=== PATIENT | female | born 1940 | race Caucasian/White ===

== ENCOUNTER 2022-03-19 19:31 | Emergency (ER) | payer MEDICARE, SELFPAY ==
[2022-03-19 19:49] VITALS: BP 177/72; PULSE 69; O2SAT 99; BMI 23.7
[2022-03-19 20:02] VITALS: O2SAT 97
[2022-03-19 20:12] VITALS: PULSE 70; O2SAT 95
[2022-03-19 20:15] VITALS: PULSE 68; O2SAT 98
[2022-03-19 20:16] LABS: Troponin, Point-of-Care* 0.01 ng/ml (0.01-0.04)
--- NOTE | 2022-03-19 20:25 | ED_ITS ---
HPI - Chest Pain General Chief Complaint: Chest Pain Stated Complaint: Excessive Shortness of Breath - Pain in Chest Time Seen by Provider: 03/19/22 20:04 History of Present Illness HPI narrative: 81-year-old woman presenting to the emergency department with complaint of burning low chest pain. Is going on about 5 days of illness. Was seen 2 days ago in clinic due to severe exercise intolerance and audible chest congestion/wheeze-apparently does have an underlying reactive airway diagnosis, not COPD and uses nebulizations- reportedly diagnosed with pneumonia and heart failure exacerbation and was doubled on diuretics and has been diuresing. Nebulizations have been helpful when wheezy. Woke today feeling markedly improved. Has a history of left foot and leg spasms and this started happening again this evening seemed to proceed upper leg and then started breathing heavily along with something ?not right? in her chest describing his burning sensation. Apparently this is new. Does have a long history of esophageal inflammation with a history of spasms which usually are much more intense pain alleviated with nitro and sounds like has a history of stricture or dysmotility of some sort and has had dilatation and scheduled for another soon. Has extensive cardiac history as well with open heart surgeries. Related Data Home Medications Medication Instructions Recorded Confirmed albuterol sulfate 2.5 mg/3 mL mg 03/19/22 (0.083 %) solution for nebulization ciprofloxacin HCl 500 mg tablet mg 03/19/22 fluoxetine 10 mg capsule mg 03/19/22 fluoxetine 20 mg capsule mg 03/19/22 isosorbide mononitrate 30 mg mg PO 03/19/22 tablet,extended release 24 hr levalbuterol HCl 0.31 mg/3 mL mg inhalation 03/19/22 solution for nebulization losartan 25 mg tablet mg 03/19/22 magnesium oxide mg 03/19/22 metoprolol succinate 25 mg mg PO 03/19/22 tablet,extended release 24 hr nitroglycerin 0.4 mg sublingual mg 03/19/22 tablet Allergies Allergy/AdvReac Type Severity Reaction Status Date / Time buspirone [From BuSpar] Allergy Unknown Verified 03/19/22 19:52 Exam Narrative Exam Narrative: Is very pleasant. Calm but appears mildly anxious demonstrated in part by an intermittent breathlessness. Nerves 2 through 12 are intact. Lungs actually are clear. Cardiovascular slow to maybe bradycardic in a regular rate and rhythm. Appears to have mild JVD. Abdomen is soft and generally sensitive tummy; sounds like this is not a new phenomenon. Normoactive bowel sounds. No extremity edema. Oxygen sats of 100% skin is warm and dry without evidence of injury or inflammatory changes otherwise. Oropharynx is dry Const Vital Signs, click to edit/add: Vital Signs - 24 hr 03/19/22 19:49 03/19/22 20:02 03/19/22 20:12 Pulse Rate 70 Pulse Rate [Left Pulse Oximeter] 69 Blood Pressure [Right Upper Arm] 177/72 H Pulse Oximetry 99 97 95 Oxygen Delivery Method Room Air 03/19/22 20:15 03/19/22 20:30 03/19/22 20:45 Pulse Rate 68 64 67 Pulse Rate [Left Pulse Oximeter] Blood Pressure [Right Upper Arm] Pulse Oximetry 98 98 97 Oxygen Delivery Method Documenting provider has reviewed patient's vital signs: yes Course Vital Signs Vital signs: Initial Vital Signs Pulse Rate 69 03/19/22 19:49 Blood Pressure 177/72 H 03/19/22 19:49 Blood Pressure Mean 107 03/19/22 19:49 Blood Pressure Position Supine 03/19/22 19:49 Pulse Oximetry 99 03/19/22 19:49 Oxygen Delivery Method 03/19/22 19:49 Vital Signs Pulse Rate 69 03/19/22 19:49 Blood Pressure 177/72 H 03/19/22 19:49 Pulse Oximetry 99 03/19/22 19:49 Oxygen Delivery Method 03/19/22 19:49 Pulse Rate 67 03/19/22 20:45 Blood Pressure 177/72 H 03/19/22 19:49 Pulse Oximetry 97 03/19/22 20:45 Oxygen Delivery Method 03/19/22 19:49 MDM - Chest Pain MDM Narrative Medical decision making narrative: Considering history I do think that cardiac evaluation is certainly in order. Initial EKG reviewed. I do perceive some degree of anxiety here as well. She also has other reasons to have burning chest discomfort with esophageal issues/spasm. With oxygen saturations of 100% and nonpleuritic chest discomfort and I am not sure that the issue here is pulmonary. Was given dose of lorazepam and more relaxed felt better. Chest x-ray reviewed by me does show postoperative changes. I felt like there was some mild evidence of congestion though clinically without findings. Ra diology over-read as below-- FINDINGS: Lungs clear. Heart size is normal given technique. Moderate-sized hiatal hernia. Sternotomy. Left-sided AICD. The upper esophagus appears distended with air. This finding was present on both prior exams but appears to have progressed. I do think esophageal related discomfort could explain some of her symptoms today exacerbated by anxiety. ProBNP evaluated 2 days ago was 713 in clinic. I am not sure what normal range is as checked at outside clinic. 1370 here today. Do not have creatinine from 2 days ago. I would note that her creatinine is 1.9 here today. Has been taking torsemide 40 mg daily from usual 20 mg daily. Daughter does say that Sofy has a diagnosis of stage III renal disease. I suspect has not normalized from CHF exacerbation. Sounds like it has been sometime since she had an echo. Seems vitally well here albeit with a mildly low diastolic blood pressure settling in 120s over 50s. Otherwise reports feeling well. I think is safe for discharge. They report that was to receive an INR recheck tomorrow and so I add this on to labs prior to departure. Medical Records Data Attestation: I reviewed the patient's medical records. Lab Data Attestation: I reviewed the patient's lab results. Labs: Lab Results 03/19/22 03/19/22 03/19/22 Range/Units 20:00 20:00 20:00 WBC 6.99 (4.50-11.00) K/uL RBC 3.48 L (4.00-5.20) m/uL Hgb 10.3 L (12.0-16.0) gm/dL Hct 31.4 L (33.0-51.0) % MCV 90 (80-100) fL MCH 30 (26-34) pg MCHC 33 (32-36) gm/dL RDW Coeff of Karma 15.4 (11.5-15.5) % Plt Count 155 (140-440) K/uL Neut % (Auto) 53.6 (42.0-72.0) % Lymph % (Auto) 27.3 (20-44) % [place] % (Auto) 13.0 H (0.0-11.0) % Eos % (Auto) 5.7 (0.0-7.0) % Baso % (Auto) 0.4 (0.0-3.0) % Neut # (Auto) 3.74 (1.7-7.0) K/uL Lymph # (Auto) 1.91 (0.90-2.90) K/uL [place] # (Auto) 0.90 (0.00-0.90) K/UL Eos # (Auto) 0.40 (0.00-0.50) K/uL Baso # (Auto) 0.03 (0.00-0.30) K/uL Abs Immat Gran (auto) 0.00 (0.00-0.30) K/uL Imm/Tot Granulo (auto) 0.0 % INR 1.78 H (0.91-1.10) D-Dimer Quant (PE/DVT) 0.35 (0.00-0.50) ug/ml Sodium 142 (135-149) mmol/L Potassium 4.1 (3.6-5.1) mmol/L Chloride 109 (96-114) mmol/L Carbon Dioxide 23 (20-32) mmol/L BUN 35 H (7-30) mg/dL Creatinine 1.9 H (0.5-1.5) mg/dL Estimated Creat Clear 18.56 Estimated GFR 26 ml/min Glucose 131 H (60-115) mg/dL Calcium 8.6 (8.4-10.6) mg/dL Total Bilirubin 0.7 (0.1-1.5) mg/dL Direct Bilirubin 0.1 (0.0-0.5) mg/dL AST 27 (12-35) U/L ALT 21 (4-35) U/L Alkaline Phosphatase 65 (40-150) U/L Troponin I (0.01-0.04) ng/mL C-Reactive Protein < 0.5 L (0.5-1.0) mg/dL NT-Pro-B Natriuret Pep 1370 H (0-450) PG/mL Total Protein 6.9 (6.0-8.3) g/dL Albumin 4.1 (3.3-5.0) g/dL SARS-CoV-2 (PCR) (Negative) Influenza Type A (PCR) (Negative) Influenza Type B (PCR) (Negative) RSV (PCR) (Negative) POC Troponin I (0.01-0.04) ng/ml 03/19/22 03/19/22 03/19/22 Range/Units 20:00 20:00 20:02 WBC (4.50-11.00) K/uL RBC (4.00-5.20) m/uL Hgb (12.0-16.0) gm/dL Hct (33.0-51.0) % MCV (80-100) fL MCH (26-34) pg MCHC (32-36) gm/dL RDW Coeff of Karma (11.5-15.5) % Plt Count (140-440) K/uL Neut % (Auto) (42.0-72.0) % Lymph % (Auto) (20-44) % [place] % (Auto) (0.0-11.0) % Eos % (Auto) (0.0-7.0) % Baso % (Auto) (0.0-3.0) % Neut # (Auto) (1.7-7.0) K/uL Lymph # (Auto) (0.90-2.90) K/uL [place] # (Auto) (0.00-0.90) K/UL Eos # (Auto) (0.00-0.50) K/uL Baso # (Auto) (0.00-0.30) K/uL Abs Immat Gran (auto) (0.00-0.30) K/uL Imm/Tot Granulo (auto) % INR Cancelled (0.91-1.10) D-Dimer Quant (PE/DVT) (0.00-0.50) ug/ml Sodium (135-149) mmol/L Potassium (3.6-5.1) mmol/L Chloride (96-114) mmol/L Carbon Dioxide (20-32) mmol/L BUN (7-30) mg/dL Creatinine (0.5-1.5) mg/dL Estimated Creat Clear Estimated GFR ml/min Glucose (60-115) mg/dL Calcium (8.4-10.6) mg/dL Total Bilirubin (0.1-1.5) mg/dL Direct Bilirubin (0.0-0.5) mg/dL AST (12-35) U/L ALT (4-35) U/L Alkaline Phosphatase (40-150) U/L Troponin I 0.01 (0.01-0.04) ng/mL C-Reactive Protein (0.5-1.0) mg/dL NT-Pro-B Natriuret Pep (0-450) PG/mL Total Protein (6.0-8.3) g/dL Albumin (3.3-5.0) g/dL SARS-CoV-2 (PCR) Negative SARS-CoV-2 (Negative) Influenza Type A (PCR) Negative PCR FLU A (Negative) Influenza Type B (PCR) Negative PCR FLU B (Negative) RSV (PCR) Negative PCR RSV (Negative) POC Troponin I (0.01-0.04) ng/ml 03/19/22 03/19/22 Range/Units 20:15 22:10 WBC (4.50-11.00) K/uL RBC (4.00-5.20) m/uL Hgb (12.0-16.0) gm/dL Hct (33.0-51.0) % MCV (80-100) fL MCH (26-34) pg MCHC (32-36) gm/dL RDW Coeff of Karma (11.5-15.5) % Plt Count (140-440) K/uL Neut % (Auto) (42.0-72.0) % Lymph % (Auto) (20-44) % [place] % (Auto) (0.0-11.0) % Eos % (Auto) (0.0-7.0) % Baso % (Auto) (0.0-3.0) % Neut # (Auto) (1.7-7.0) K/uL Lymph # (Auto) (0.90-2.90) K/uL [place] # (Auto) (0.00-0.90) K/UL Eos # (Auto) (0.00-0.50) K/uL Baso # (Auto) (0.00-0.30) K/uL Abs Immat Gran (auto) (0.00-0.30) K/uL Imm/Tot Granulo (auto) % INR (0.91-1.10) D-Dimer Quant (PE/DVT) (0.00-0.50) ug/ml Sodium (135-149) mmol/L Potassium (3.6-5.1) mmol/L Chloride (96-114) mmol/L Carbon Dioxide (20-32) mmol/L BUN (7-30) mg/dL Creatinine (0.5-1.5) mg/dL Estimated Creat Clear Estimated GFR ml/min Glucose (60-115) mg/dL Calcium (8.4-10.6) mg/dL Total Bilirubin (0.1-1.5) mg/dL Direct Bilirubin (0.0-0.5) mg/dL AST (12-35) U/L ALT (4-35) U/L Alkaline Phosphatase (40-150) U/L Troponin I (0.01-0.04) ng/mL C-Reactive Protein (0.5-1.0) mg/dL NT-Pro-B Natriuret Pep (0-450) PG/mL Total Protein (6.0-8.3) g/dL Albumin (3.3-5.0) g/dL SARS-CoV-2 (PCR) (Negative) Influenza Type A (PCR) (Negative) Influenza Type B (PCR) (Negative) RSV (PCR) (Negative) POC Troponin I 0.01 0.01 (0.01-0.04) ng/ml ECG Data Attestation: I personally reviewed and interpreted this ECG as follows: (Normal sinus rate of 68. Evolving right bundle? Otherwise no ischemic changes.) Discharge Plan Discharge Clinical Impression: Heart failure, Anxiety, Atypical chest pain Patient Disposition: Home w/ Parent or Adult Condition: Improved Additional Instructions: I am concerned about your exercise intolerance. I do think this warrants close follow-up. It may be that this will continue to improve with the diuresis. Consider taking your torsemide in the morning and early afternoon as opposed to at the same time. Please call to Cardiology and/or primary tomorrow to arrange next steps in followup. I do not see a pneumonia here today but you're on a good antibiotic regardless. Otherwise return for persistent and increased shortness of breath not alleviated with nebulizer, persistent chest pain not alleviated with nitro. INR will be pending here. Prescriptions: No Action albuterol sulfate 2.5 mg /3 mL (0.083 %) solution for nebulization isosorbide mononitrate 30 mg tablet extended release 24 hr PO Label Comments: TAKE 1 TABLET BY MOUTH EVERY MORNING ciprofloxacin HCl 500 mg tablet losartan 25 mg tablet Label Comments: TAKE 1 TABLET BY MOUTH EVERY DAY fluoxetine 10 mg capsule Label Comments: TAKE 1 CAPSULE (10 MG) BY MOUTH EVERY MORNING. WITH THE 20MG DAILY nitroglycerin 0.4 mg tablet, sublingual Label Comments: PLACE 1 TABLET (0.4 MG) UNDER THE TONGUE EVERY 5 MINUTES IF NEEDED FOR CHEST PAIN. metoprolol succinate 25 mg tablet extended release 24 hr PO Label Comments: TAKE 1 TABLET BY MOUTH EVERY DAY fluoxetine 20 mg capsule Label Comments: TAKE 1 CAPSULE (20 MG) BY MOUTH EVERY MORNING. WITH THE 10MG DOSE magnesium oxide 250 mg magnesium tablet Label Comments: TAKE 1 TABLET BY MOUTH ONCE DAILY. levalbuterol HCl 0.31 mg/3 mL solution for nebulization INHALATION Label Comments: INHALE 3 ML VIA A NEBULIZER EVERY 4 HOURS IF NEEDED FOR SHORTNESS OF BREATH Follow Up/Referrals: Alia Huang DO [Primary Care Provider] - Stand Alone [facility] Inst[facility]
--- NOTE | 2022-03-19 20:29 | CRLHL7_ITS ---
For Patients: As a result of the Century Cures Act, medical imaging exams and procedure reports are released immediately into your electronic medical record. You may view this report before your referring provider. If you have questions, please contact your health care provider. INDICATION: Dyspnea. TECHNIQUE: Portable AP chest. COMPARISON: 02/28/2020 and 05/08/2017. FINDINGS: Lungs clear. Heart size is normal given technique. Moderate-sized hiatal hernia. Sternotomy. Left-sided AICD. The upper esophagus appears distended with air. This finding was present on both prior exams but appears to have progressed. Dictated by Davian Nugent MD @ 03/19/2022 9:07:01 PM Dictated by: Davian Nugent MD @ 03/19/2022 21:07:05 (Electronically Signed)
[2022-03-19 20:30] VITALS: PULSE 64; O2SAT 98
[2022-03-19 20:38] LABS: Basophils Absolute Auto 0.03 K/uL (0.00-0.30); Basophils Percent Auto 0.4 % (0.0-3.0); Eosinophils Percent Auto 5.7 % (0.0-7.0); Hematocrit 31.4 % (33.0-51.0); Hemoglobin* 10.3 gm/dL (12.0-16.0); Lymphocytes Absolute Auto 1.91 K/uL (0.90-2.90); Lymphocytes Percent Auto 27.3 % (20-44); Mean Corpuscular HGB Conc 33 gm/dL (32-36); Mean Corpuscular Hemoglobin 30 pg (26-34); Mean Corpuscular Volume 90 fL (80-100); Neutrophils Absolute Auto 3.74 K/uL (1.7-7.0); Neutrophils Percent Auto 53.6 % (42.0-72.0); Platelet Count* 155 K/uL (140-440); RDW Coefficient of Variation % 15.4 % (11.5-15.5); Red Blood Count 3.48 m/uL (4.00-5.20); White Blood Count* 6.99 K/uL (4.50-11.00)
[2022-03-19 20:44] LABS: Albumin* 4.1 g/dL (3.3-5.0); Chloride* 109 mmol/L (96-114); Potassium* 4.1 mmol/L (3.6-5.1); Sodium* 142 mmol/L (135-149)
[2022-03-19 20:45] VITALS: PULSE 67; O2SAT 97
[2022-03-19] MEDS: LORazepam 2 MG/ML inj 0.3 MG IVP (20:45)
[2022-03-19 20:46] LABS: Creatinine* 1.9 mg/dL (0.5-1.5); Est. Creatinine Clearance* 18.56; Estimated Glomerular Filt Rate 26 ml/min
[2022-03-19 20:47] LABS: Alanine Aminotransferase* 21 U/L (4-35); Alkaline Phosphatase* 65 U/L (40-150); Aspartate Amino Transferase* 27 U/L (12-35); Bilirubin Direct* 0.1 mg/dL (0.0-0.5); Bilirubin Total* 0.7 mg/dL (0.1-1.5); Blood Urea Nitrogen* 35 mg/dL (7-30); Carbon Dioxide* 23 mmol/L (20-32); Glucose* 131 mg/dL (60-115); Total Protein* 6.9 g/dL (6.0-8.3)
[2022-03-19 20:48] LABS: Calcium* 8.6 mg/dL (8.4-10.6)
[2022-03-19 20:50] LABS: D Dimer Quantitative* 0.35 ug/ml (0.00-0.50)
[2022-03-19 20:53] LABS: C Reactive Protein* < 0.5 mg/dL (0.5-1.0); Slide Review Reflex No
[2022-03-19 20:56] LABS: NT Pro B Type NatriureticPept* 1370 PG/mL (0-450)
[2022-03-19 20:59] LABS: Troponin I* 0.01 ng/mL (0.01-0.04)
[2022-03-19 21:25] LABS: PCR FLU A Negative PCR FLU A (Negative); PCR FLU B Negative PCR FLU B (Negative); PCR RSV Negative PCR RSV (Negative); SARS PCR* Negative SARS-CoV-2 (Negative)
[2022-03-19 22:22] LABS: Troponin, Point-of-Care* 0.01 ng/ml (0.01-0.04)
[2022-03-20 01:30] LABS: INR 1.78 (0.91-1.10); Prothrombin Time 21.6 Seconds
== END 2022-03-20 00:18 | disposition home or self-care (01) ==
PROVIDERS: Emergency Provider Family Medicine; PCP Family Medicine
DX: R07.89 Other chest pain (principal); I50.9 Heart failure, unspecified
CPT/HCPCS: 36415; 71045; 80048; 80076; 83880; 84484; 85025; 85379; 85610; 86140; 87502; 87634; 87635; 93005; 94761; 96374; 99284; J2060

== ENCOUNTER 2022-07-14 14:02 | Emergency (ER) | payer MEDICARE, SELFPAY ==
[2022-07-14 14:12] VITALS: BP 92/58; RESP 16; TEMP 36.3; O2SAT 97; BMI 20.9
--- NOTE | 2022-07-14 14:22 | ED.GENADULT ---
HPI - General Adult General Time Seen by Provider: 14:22 Date Seen: 07/14/22 Chief complaint: Lower Extremity Swelling Stated complaint: R knee pain Time Seen by Provider: 07/14/22 14:21 Source: patient Mode of arrival: wheelchair History of Present Illness HPI narrative: Sofy is a 81 year old female with past medical history of congestive heart failure, hypertension, on chronic anticoagulation presents emerged department via private car with daughter with lower extremity swelling. Patient states that she fell last April, she got caught in between her recliner and a table, no head injury at that time, she states she has had some right knee pain that is progressively got worse, over the last few days she had difficulty with ambulation, pain is mostly anterior there is some radiation to the back, there is no associated redness or swelling, she denies any numbness or tingling. Patient denies any shortness of breath or chest pain, she has been taking Tylenol 1 g every 6 hours, the last time was at 9:30 a.m. this morning. Of note she did use her exercise bike yesterday which made the pain worse. She did not sleep last night due to pain. Related Data Home Medications Medication Instructions Recorded Confirmed albuterol sulfate 2.5 mg/3 mL mg 03/19/22 (0.083 %) solution for nebulization ciprofloxacin HCl 500 mg tablet mg 03/19/22 fluoxetine 10 mg capsule mg 03/19/22 fluoxetine 20 mg capsule mg 03/19/22 isosorbide mononitrate 30 mg mg PO 03/19/22 tablet,extended release 24 hr levalbuterol HCl 0.31 mg/3 mL mg inhalation 03/19/22 solution for nebulization losartan 25 mg tablet mg 03/19/22 magnesium oxide mg 03/19/22 metoprolol succinate 25 mg mg PO 03/19/22 tablet,extended release 24 hr nitroglycerin 0.4 mg sublingual mg 03/19/22 tablet Allergies Allergy/AdvReac Type Severity Reaction Status Date / Time buspirone [From BuSpar] Allergy Unknown Verified 07/14/22 14:17 Review of Systems Status of ROS: Reports: 10 or more systems reviewed and unremarkable except as noted in History and below PFSH PFS Social History Smoking Status: Former smoker How often do you have a drink containing alcohol: never AUDIT-C Alcohol total score: 0 Non-prescribed substance use: denies use Exam Narrative: Exam Narrative: General: No obvious distress sitting comfortably HEENT: Pupils are equal round reactive to light, extraocular muscles intact Lungs: Clear to auscultation bilaterally Heart: Normal sinus rhythm S1-S2 Abdomen: Soft nontender, bowel sounds present Extremities: Right lower extremity: Patient can actively extend and flex, no effusion present, no erythema, valgus and varus comparable bilaterally, anterior drawer negative, she has patent dorsal pedis pulses, capillary refill normal. Nontender to palpation the calf, no palpable cord. Neuro: Alert awake and oriented x3 Const: Vital Signs, click to edit/add: Vital Signs - 24 hr 07/14/22 14:12 07/14/22 16:56 Temperature 97.3 F L Respiratory Rate 16 Blood Pressure [Ri ght Upper Arm] 92/58 L 118/67 Pulse Oximetry 97 Oxygen Delivery Me thod Room Air Course Course Hospital Course: 3:00 PM: AIDET performed, workup will include imaging XR right knee three views, Tylenol 1 g for pain, will add CBC, CRP, BMP and INR, patient is anticoagulated so DVT is less likely, based on history and exam this seems less likely, no signs of any worsening heart failure on exam or fluid retention. Possible overuse with patient's exercise bike yesterday. Differential diagnosis include DVT/PE, CHF exacerbation, superficial thrombophlebitis, popliteal cyst, no vascular disease, osteoarthritis, rheumatoid arthritis, fracture, sprain, contusion or hematoma. Reevaluation(s) Reevaluation #1: Findings/Impression: Bones: Alignment is normal. No fractures or bone lesions.? No sign of acute injury.? Joint spaces: Mild tricompartmental osteoarthritis with chondrocalcinosis. Soft tissues: Unremarkable. Time: 16:12 Reevaluation #2: MPRESSION: Normal ultrasound of the right lower extremity veins. Patient was updated on her normal ultrasound results as well as her x-ray results, she is feeling better after above care given, labs were unremarkable, plan would be to discharge, she will continue with Tylenol 1 g every 4-6 hours as needed for pain, she needs to follow up with her primary care provider over the next 7-10 days for re-check. Time: 17:46 Vital Signs Vital signs: Initial Vital Signs Temperature 97.3 F L 07/14/22 14:12 Temperature Source Temporal Artery Scan 07/14/22 14:12 Respiratory Rate 16 07/14/22 14:12 Blood Pressure 92/58 L 07/14/22 14:12 Blood Pressure Mean 69 07/14/22 14:12 Blood Pressure Position Sitting 07/14/22 14:12 Pulse Oximetry 97 07/14/22 14:12 Oxygen Delivery Method Room Air 07/14/22 14:12 Vital Signs Temperature 97.3 F L 07/14/22 14:12 Respiratory Rate 16 07/14/22 14:12 Blood Pressure 92/58 L 07/14/22 14:12 Pulse Oximetry 97 07/14/22 14:12 Oxygen Delivery Method Room Air 07/14/22 14:12 Temperature 97.3 F L 07/14/22 14:12 Respiratory Rate 16 07/14/22 14:12 Blood Pressure 118/67 07/14/22 16:56 Pulse Oximetry 97 07/14/22 14:12 Oxygen Delivery Method Room Air 07/14/22 14:12 Medical Decision Making Lab Data Labs: Lab Results 07/14/22 Range/Units 17:39 WBC 7.39 (4.50-11.00) K/uL RBC 3.63 L (4.00-5.20) m/uL Hgb 10.8 L (12.0-16.0) gm/dL Hct 32.4 L (33.0-51.0) % MCV 89 (80-100) fL MCH 30 (26-34) pg MCHC 33 (32-36) gm/dL RDW Coeff of Karma 14.1 (11.5-15.5) % Plt Count 141 (140-440) K/uL Neut % (Auto) 59.6 (42.0-72.0) % Lymph % (Auto) 28.8 (20-44) % [place] % (Auto) 6.5 (0.0-11.0) % Eos % (Auto) 4.6 (0.0-7.0) % Baso % (Auto) 0.5 (0.0-3.0) % Neut # (Auto) 4.40 (1.7-7.0) K/uL Lymph # (Auto) 2.13 (0.90-2.90) K/uL [place] # (Auto) 0.50 (0.00-0.90) K/UL Eos # (Auto) 0.34 (0.00-0.50) K/uL Baso # (Auto) 0.04 (0.00-0.30) K/uL INR 2.30 H (0.91-1.10) Sodium 137 (135-149) mmol/L Potassium 4.9 (3.6-5.1) mmol/L Chloride 106 (96-114) mmol/L Carbon Dioxide 27 (20-32) mmol/L BUN 30 (7-30) mg/dL Creatinine 1.5 (0.5-1.5) mg/dL Estimated Creat Clear 23.51 Estimated GFR 34 ml/min Glucose 82 (60-115) mg/dL Calcium 9.1 (8.4-10.6) mg/dL C-Reactive Protein < 0.5 L (0.5-1.0) mg/dL Discharge Plan Discharge Clinical Impression: Chronic anticoagulation, Chronic pain of right knee Patient Disposition: Home, Self-Care Condition: Improved Instructions: P.R.I.C.E. Treatment (ED) Additional Instructions: To continue with the [place] wrap as needed for support, can apply a neoprene knee immobilizer for support as well, Tylenol 1 g every 6 hours, RICE instructions given, patient is follow-up with primary care provider over the next 7-10 days, return precautions given. Activity Level: Activity as Tolerated Prescriptions: No Action albuterol sulfate 2.5 mg /3 mL (0.083 %) solution for nebulization isosorbide mononitrate 30 mg tablet extended release 24 hr PO Patient Comments: TAKE 1 TABLET BY MOUTH EVERY MORNING ciprofloxacin HCl 500 mg tablet losartan 25 mg tablet Patient Comments: TAKE 1 TABLET BY MOUTH EVERY DAY fluoxetine 10 mg capsule Patient Comments: TAKE 1 CAPSULE (10 MG) BY MOUTH EVERY MORNING. WITH THE 20MG DAILY nitroglycerin 0.4 mg tablet, sublingual Patient Comments: PLACE 1 TABLET (0.4 MG) UNDER THE TONGUE EVERY 5 MINUTES IF NEEDED FOR CHEST PAIN. metoprolol succinate 25 mg tablet extended release 24 hr PO Patient Comments: TAKE 1 TABLET BY MOUTH EVERY DAY fluoxetine 20 mg capsule Patient Comments: TAKE 1 CAPSULE (20 MG) BY MOUTH EVERY MORNING. WITH THE 10MG DOSE magnesium oxide 250 mg magnesium tablet Patient Comments: TAKE 1 TABLET BY MOUTH ONCE DAILY. levalbuterol HCl 0.31 mg/3 mL solution for nebulization INHALATION Patient Comments: INHALE 3 ML VIA A NEBULIZER EVERY 4 HOURS IF NEEDED FOR SHORTNESS OF BREATH Follow Up/Referrals: Alia Huang DO [Referring] - Stand Alone Forms: [facility] Info Instructions
--- NOTE | 2022-07-14 14:55 | CRLHL7_ITS ---
For Patients: As a result of the Cures Act, medical imaging exams and procedure reports are released immediately into your electronic medical record. You may view this report before your referring provider. If you have questions, please contact your health care provider. Indication: Trauma. Technique: Right knee, 3 views. Comparison: None. Findings/Impression: Bones: Alignment is normal. No fractures or bone lesions. No sign of acute injury. Joint spaces: Mild tricompartmental osteoarthritis with chondrocalcinosis. Soft tissues: Unremarkable. Dictated by Gamaliel Jones MD @ 07/14/2022 4:08:53 PM (Electronically Signed)
[2022-07-14] MEDS: ACETAMINOPHEN 500 MG TABLET 1000 MG PO (15:00)
--- NOTE | 2022-07-14 16:14 | CRLHL7_ITS ---
For Patients: As a result of the Cures Act, medical imaging exams and procedure reports are released immediately into your electronic medical record. You may view this report before your referring provider. If you have questions, please contact your health care provider. INDICATION: SUBTHERAPEUTIC INR, SIERRA POSTERIOR KNEE TECHNIQUE: Ultrasound venous duplex right lower extremity. COMPARISON: None. FINDINGS: The right common femoral, superficial femoral, deep femoral, popliteal, posterior tibial, and greater saphenous veins are fully compressible with normal waveforms. The contralateral left common femoral artery is fully compressible with normal waveform. No masses evident. IMPRESSION: Normal ultrasound of the right lower extremity veins. Dictated by: Jose Horton MD @ 07/14/2022 17:38:34 (Electronically Signed)
[2022-07-14] MEDS: KETOROLAC 15 MG/ML inj IM (16:15)
[2022-07-14 16:56] VITALS: BP 118/67
[2022-07-14 17:45] LABS: Basophils Absolute Auto 0.04 K/uL (0.00-0.30); Basophils Percent Auto 0.5 % (0.0-3.0); Eosinophils Absolute Auto 0.34 K/uL (0.00-0.50); Eosinophils Percent Auto 4.6 % (0.0-7.0); Hematocrit 32.4 % (33.0-51.0); Hemoglobin* 10.8 gm/dL (12.0-16.0); Lymphocytes Absolute Auto 2.13 K/uL (0.90-2.90); Lymphocytes Percent Auto 28.8 % (20-44); Mean Corpuscular HGB Conc 33 gm/dL (32-36); Mean Corpuscular Hemoglobin 30 pg (26-34); Mean Corpuscular Volume 89 fL (80-100); Monocytes Percent Auto 6.5 % (0.0-11.0); Neutrophils Percent Auto 59.6 % (42.0-72.0); Platelet Count* 141 K/uL (140-440); RDW Coefficient of Variation % 14.1 % (11.5-15.5); Red Blood Count 3.63 m/uL (4.00-5.20); White Blood Count* 7.39 K/uL (4.50-11.00)
[2022-07-14 17:47] LABS: Slide Review Reflex No
[2022-07-14 18:04] LABS: Chloride* 106 mmol/L (96-114); Sodium* 137 mmol/L (135-149)
[2022-07-14 18:05] LABS: Potassium* 4.9 mmol/L (3.6-5.1)
[2022-07-14 18:07] LABS: Creatinine* 1.5 mg/dL (0.5-1.5); Est. Creatinine Clearance* 23.51; Estimated Glomerular Filt Rate 34 ml/min
[2022-07-14 18:08] LABS: Blood Urea Nitrogen* 30 mg/dL (7-30); Calcium* 9.1 mg/dL (8.4-10.6); Carbon Dioxide* 27 mmol/L (20-32); Glucose* 82 mg/dL (60-115); Prothrombin Time 26.4 Seconds
[2022-07-14 18:11] LABS: C Reactive Protein* < 0.5 mg/dL (0.5-1.0)
== END 2022-07-14 18:39 | disposition home or self-care (01) ==
PROVIDERS: Emergency Provider Student in an Organized Health Care Education/Training Program; PCP Family Medicine
DX: M25.561 Pain in right knee (principal); Z79.01 Long term (current) use of anticoagulants
CPT/HCPCS: 36415; 73562; 80048; 85025; 85610; 86140; 93971; 96372; 99284; A9270; J1885

== ENCOUNTER 2023-11-04 14:26 | Emergency (ER) | payer MEDICARE, SELFPAY ==
[2023-11-04] VITALS (39 sets, daily range): BP systolic 102–131; BP diastolic 54–73; PULSE 60–79; RESP 16; TEMP 36.5; O2SAT 92–98; BMI 20.5
--- NOTE | 2023-11-04 15:15 | CRLHL7_ITS ---
For Patients: As a result of the Century Cures Act, medical imaging exams and procedure reports are released immediately into your electronic medical record. You may view this report before your referring provider. If you have questions, please contact your health care provider. Indication: Shortness of breath Technique: PA and lateral views of the chest. Comparison: 03/19/2022 Findings: Left chest AICD with right atrial and right ventricular leads. Postsurgical changes from median sternotomy. Moderate hiatal hernia. No focal consolidation, pleural effusions, or visualized pneumothorax. [id number] multilevel degenerative changes of the visualized spine. Upper abdominal surgical clips. Impression: No acute cardiopulmonary disease. Dictated by Favio Arias MD @ 11/04/2023 5:20:25 PM (Electronically Signed)
[2023-11-04 15:38] LABS: Troponin, Point-of-Care* 0.01 ng/ml (0.01-0.04)
--- OUTSIDE RECORDS SUMMARY | 2023-11-04 15:53 | XMS_ITS | Clinical Summary ---
Author Organization [facility] Address [address] [place] [address] Phone Care Team Providers Care Lye Peel Operator Name Role Phone Lina Major MD Primary Care Provider Allergies Active Allergy Reactions Criticality Noted Date Comments Antonio Inhibitors Other (see comments) 03/31/2011 Buspirone Other (see comments) 06/22/2003 Fatigue Lethargic Citalopram Other (see comments) Low 02/09/2018 Latex Rash Low 04/06/2022 Ticagrelor Shortness of breath High 04/07/2022 Medications Medication Sig Dispensed Refills Start Date End Date Status albuterol (2.5 MG/3ML) 0.083% nebulizer solution Inhale 2.5 mg every 4 (four) hours if needed for wheezing or shortness of breath 02/24/2023 Active albuterol HFA (PROVENTIL HFA;VENTOLIN HFA) 108 (90 Base) MCG/ACT inhaler Inhale 2 puffs every 4 (four) hours if needed for wheezing or shortness of breath 05/18/2023 Active Ascorbic Acid (Vitamin C) 500 MG chewable tablet Chew 500 mg in the morning. 03/31/2011 Active atorvastatin (LIPITOR) 80 MG tablet Take 80 mg by mouth at bed time 02/24/2023 Active cholecalciferol (VITAMIN D-3) 25 MCG (1000 UT) tablet Take 1,000 Units by mouth 1 (one) time each day 02/24/2023 Active clopidogrel (PLAVIX) 75 MG tablet Take 75 mg by mouth 1 (one) time each day 12/22/2022 Active FLUoxetine (PROzac) 20 MG capsule Take 20 mg by mouth 1 (one) time each day 02/24/2023 Active fluticasone (FLONASE) 50 MCG/ACT nasal spray Administer 2 sprays into each nostril 1 (one) time each day 02/24/2023 Active hydrOXYzine (ATARAX) 25 MG tablet TAKE 1 TAB BY MOUTH AT BEDTIME IF NEEDED FOR ANXIETY/SLEEP. TAKE 1 TAB BY MOUTH EVERY 6HRS IF NEEDED 06/09/2023 Active levalbuterol (XOPENEX) 0.31 MG/3ML nebulizer solution Inhale 0.31 mg every 8 (eight) hours if needed for wheezing or shortness of breath 05/19/2023 Active losartan (COZAAR) 25 MG tablet Take 25 mg by mouth 1 (one) time each day 02/24/2023 Active metoprolol succinate XL (TOPROL XL) 25 MG 24 hr tablet Take 0.5 tablets by mouth 1 (one) time each day 02/24/2023 Active nitroglycerin (NITROSTAT) 0.[address] 1 Tablet (0.4 mg) under the tongue every 5 minutes if needed for Chest Pain. 07/13/2023 Active potassium chloride (KLOR-CON M10) 10 MEQ CR tablet Take 2 Tablets (20 mEq) by mouth once daily with a meal. 03/26/2011 Active potassium chloride (KLOR-CON M20) 20 MEQ CR tablet Take 1 Tablet (20 mEq) by mouth once daily with a meal. 10/06/2022 Active spironolactone (ALDACTONE) 25 MG tablet Take 12.5 mg by mouth in the morning. 02/24/2023 Active warfarin (COUMADIN) 1 MG tablet Take by mouth 4 mg (1 mg x 4) every Wed; 3 mg (1 mg x 3) all other days in the evening OR as directed 05/20/2023 Active Calcium Carbonate-Vit D-Min (CALTRATE 600+D PLUS PO) Take 1 tablet by mouth 1 (one) time each day with food Active cyanocobalamin (VITAMIN B-12) 1000 MCG tablet Take 1 tablet by mouth 1 (one) time each day Active Magnesium Oxide -Mg Supplement 250 MG tablet Take 1 tablet by mouth 1 (one) time each day Active Omeprazole 20 MG tablet delayed-release TAKE 1 TABLET (20 MG) BY MOUTH ONCE DAILY BEFORE A MEAL. 05/15/2023 Active polyethylene glycol (GLYCOLAX) 17 GM/SCOOP powder MIX 1 SCOOP (17 G) IN LIQUID THEN TAKE BY MOUTH ONCE DAILY. HOLD FOR DAY IF YOU HAVE WATERY STOOL. 06/25/2023 Active torsemide (DEMADEX) 20 MG tablet Take 20 mg by mouth in the morning. 08/26/2023 Active isosorbide mononitrate (IMDUR) 30 MG 24 hr tablet Take 30 mg by mouth 1 (one) time each day 07/16/2023 Active Active Problems Problem Noted Date Diagnosed Date Stage 3b chronic kidney disease 07/15/2023 Benign hypertensive chronic kidney disease 07/14 Anemia in chronic kidney disease 07/15/2023 Renal mass 07/15/2023 Renal osteodystrophy 07/15/2023 Encounters Date Type Department Care Team Description 10/25/2023 Office Communication [facility] [address] [place] [phone] Aileen Long from Last 3 Months Social History Tobacco Use Types Packs/Day Years Used Date Smoking Tobacco: Former Cigarettes Smokeless Tobacco: Never Tobacco Cessation:Counseling Given: Not Answered Alcohol Use Standard Drinks/Week Comments Not Currently 0 (1 standard drink = 0.6 oz pur e alcohol) Sex and Gender Information Value Date Recorded Sex Assigned at Not on file Gender Identity Not on file Sexual Orientation Not on file Last Filed Vital Signs Vital Sign Reading Time Taken Comments Blood Pressure 106/68 07/15/2023 3:10 PM CDT Pulse 74 07/15/2023 3:10 PM CDT Temperature - - Respiratory Rate - - Oxygen Saturation - - Inhaled Oxygen Concentration - - Weight 53.5 kg (118 lb) 07/15/2023 3:10 PM CDT Height 160 cm (5' 3) 07/15/2023 3:10 PM CDT Body Mass Index 20.9 07/15/2023 3:10 PM CDT Plan of Treatment Upcoming Encounters Date Type Department Care Team (Late st Contact Info) Description 11/15/2023 1:20 PM EDT Office Visit [facility] [address] [place] [phone] Carleen Clemens MD [address] [place] [phone] Health Maintenance Due Date Last Done Comments Diabetes: Hemoglobin A1C 06/25/2023 Diabetes: Ophthalmology Exam 06/25/2023, 06/03/2005, 02/20/2004 Diabetes: Pedal Pulse Checked 06/25/2023 Diabetes: Sensory Foot Exam 06/25/2023 Diabetes: Visual Foot Exam 06/25/2023 Influenza Vaccine (#1) 2023 3, 01/12/2022, 01/15/2021, Additional history exists Pneumococcal Vaccine: 65+ Years Completed 01/17/2016, 04/26/2009, 02/02/2005 Hepatitis B Vaccine Aged Out No longe r eligible based on patient's age to complete this topic Care Teams Lye Peel Operator Relationship Specialty Start Date End Date Lina Major MD [address] [place] [address] PCP - General Family Medicine 06/28/23
--- OUTSIDE RECORDS SUMMARY | 2023-11-04 15:53 | XMS_ITS | Encounter Summary ---
Author Organization [facility] Address [address] [place] [address] Care Team Providers Care Catalogue And Special Products Manager Name Role Phone Lina Major MD Primary Care Provider [phone] Encounter Details Date Type Department Care Team (Late st Contact Info) Description 10/25/2023 Office Communication [facility] [place] [address] [place] [address] Aileen Long [address] [place] [phone] Social History Tobacco Use Types Packs/Day Years Used Date Smoking Tobacco: Former Cigarettes Smokeless Tobacco: Never Alcohol Use Standard Drinks/Week Comments Not Currently 0 (1 standard drink = 0.6 oz pur e alcohol) Sex and Gender Information Value Date Recorded Sex Assigned at Not on file Gender Identity Not on file Sexual Orientation Not on file documented as of this encounter Miscellaneous Notes * Telephone Encounter - Aileen Long - 10/25/2023 9:40 AM CDT Pt has an upcoming appointment with you on 11/14. Please order previsit labs if needed. documented in this encounter Plan of Treatment Upcoming Encounters Date Type Department Care Team (Late Contact Info) Description 11/15/2023 1:20 PM EDT Office Visit [facility] [address] [place] [phone] Carleen Clemens MD [address] [place] [address] documented as of this encounter Visit Diagnoses Not on filedocumented in this encounter Care Teams Catalogue And Special Products Manager Relationship Specialty Start Date End Date Lina Major MD [address] [place] [address] PCP - General Family Medicine 06/28/23 documented as of this encounter
--- OUTSIDE RECORDS SUMMARY | 2023-11-04 15:54 | XMS_ITS | Clinical Summary ---
Author Organization [facility] Address [address] [place] [address] Care Team Providers Care Jingle Writer Name Role Phone Anna Duggan MD Primary Care Provider [phone] Source Comments You are receiving this document as you are listed as the primary care provider,follow-up provider, or the patient has been referred to you for consultation.This is in compliance with the Medicare and[facility] E[facility] Incentive [facility],which states Providers who transition their patient to another setting of careor provider of care or refers their patient to another provider of care shouldprovide summary care record for each transition of care or referral. [facility] Allergies Active Allergy Reactions Criticality Noted Date Comments Buspirone Hcl Fatigue 06/22/2003 Lethargic Antonio Inhibitors Cough 03/31/2011 Medications Medication Sig Dispensed Refills Start Date End Date Status FISH OIL 1000 MG OR CAPS Take 1 capsule QHS Active CALCIUM 600/VITAMIN D 600-200 MG-UNIT OR TABS Take 1 tablet BID Active VITAMIN A-BETA CAROTENE 52248 UNIT OR CAPS Take 1 capsule QAM Active Cholecalciferol (VITAMIN D) 1000 UNIT capsule taking two capsules daily 9 Active isosorbide mononitrate (AKA IMDUR) 30 MG 24 hour release tablet Take 1 Tab by mouth daily. 90 Tab 3 1 Active esomeprazole (AKA NEXIUM) 40 MG capsuleIndications:Esoph ageal reflux Take 1 Cap by mouth two times a day. 180 Cap 3 1 Active triamcinolone acetonide (AKA KENALOG) 0.1 % ointment Apply topically two times a day. Use aquaphor or similar between use of triamcinolone ointment 454 g 0 1 Active hydrOXYzine HCl (AKA ATARAX) 25 MG tabletIndications:Other anxiety states (HRC) Take 1 Tab by mouth daily at bedtime. 90 Tab 3 1 Active chlorhexidine gluconate (AKA PERIDEX) 0.12 % solution Take 15 mL by mouth two times a day. 240 mL 0 1 Active citalopram (CELEXA) 20 MG tablet Take 2 Tabs by mouth daily. 180 Tab 2 1 Active carvedilol (AKA COREG) 12.5 MG tablet Take 1 Tab by mouth two times a day with meals. 60 Tab prn 1 Active fenofibrate (TRICOR) 145 MG tabletIndications:Pure hypercholesterolemia Take 1 Tab by mouth daily. 90 Tab 2 1 Active ALBUterol sulfate hfa (ALBUTEROL) 108 (90 BASE) MCG/ACT inhalerIndications:[facility]c hospasm Inhale 1-2 Puffs by mouth every 4 hours as needed for Wheezing and Shortness of Breath. 17 g prn 1 Active fluticasone-salmeterol (ADVAIR DISKUS) 500-50 MCG/DOSE diskus inhaler Inhale 1 Puff by mouth two times a day. 1 Each 24 1 Active ALBUterol sulfate hfa (PROAIR HFA) 108 (90 BASE) MCG/ACT inhaler Inhale 2-4 Puffs by mouth every 4 hours as needed for Wheezing. 18 g 3 1 Active SENNA CO 3 tabs at night Active warfarin (COUMADIN) 5 MG tablet Take by mouth. 2.5 mg (1/2 tab) 3 days per week and 5 mg (1 tab) the other 4 days per week or as directed by the anticoagulation nurses 90 Tab 3 1 Active potassium chloride (KLOR-CON M10) 10 MEQ tablet Take 1 Tab by mouth daily. 90 Tab 3 1 Active ferrous sulfate 325 (65 FE) MG tablet Take 1 Tab by mouth daily with breakfast. 1 Active Ascorbic Acid (VITAMIN C) 500 MG 500 mg daily. 1 Active torsemide (AKA DEMADEX) 20 MG tablet Take 2 Tabs by mouth daily. 60 Tab 6 2 Active nitroglycerin (NITROQUICK) 0.4 MG sublingual tabletIndications:Other and unspecified angina pectoris (HRC) Place 1 Tab under tongue . If no relief after 5 min call 911;continue 1 tab every 5 min max 3 tab 50 Tab 11 2 Active atorvastatin (LIPITOR) 80 MG tablet Take 1 Tab by mouth daily at bedtime. 30 Tab 6 2 Active Active Problems Problem Noted Date Diagnosed Date Automatic implantable cardioverter-defibrillator in situ 03/31/2011 Overview: [facility] COPD (chronic obstructive pulmonary disease) Esophageal reflux 06/28/2007 Anxiety 04/29/2007 Overview: anxiety and occasional panic attacks CHF (NYHA class II, ACC/AHA stage C) 06/30/2005 Overview: Ischemic Cardiomyopathy Anemia 05/07/2005 Overview: [facility] Essential hypertension 06/12/2004 Overview: [facility] Pure hypercholesterolemia 06/12/2004 Cardiovascular disease 06/22/2003 Overview: Angioplasty x3, then CABG x2 all over about 4 months time in 1989 [facility] Resolved Problems Problem Noted Date Diagnosed Date Resolved Date CAREPLAN: ANTI-COAGULATION 09/28/2006 0 06/16/2012 Overview: Recurrent heart thrombus 09/28/06 Pacemaker placement 10/30 See telephone message dated 02/08/2011 for renewal notes. ; CAREPLAN: ANTI-COAGULATION exp 09/2011 CAREPLAN: ANTI-COAGULATION 05/13/2006 0 08/03/2006 Overview: Apical thrombus by echo 11/29 INR 2-3 Other anxiety states 06/22/2003 009 Immunizations Name Administration Dates Next Due Flu Vac (3+ yrs) 01/07/2010, 9,02/15/2008, 005,02/21/2004 H1n1 Miv San[employer]i 3+ Yr (Injected) 06/12/2009 Influenza Vaccine (3+years) ([facility]) 02/05/2011 PPSV23 (Pneumovax) 02/02/2005 Td 06/12/2004,10/18/2003 Tdap 10/03/2010 Family History Medical History Relation Name Comments Cataract Father Cerebrovascular Disease Father Cancer, Breast Mother Cerebrovascular Disease Mother also Alzheimers Macular Degeneration Mother Thyroid Disorder Mother Cancer, Other Maternal Grandfather stomac h cancer Cancer, Other Other maternal uncle Coronary Artery Disease Negative Family History Diabetes, Type II Negative Family History Relation Name Status Comments Father Mother Daughter Alive Sangeeta arndt Maternal Grandfather Other Social History Tobacco Use Types Packs/Day Years Used Date Smoking Tobacco: Former Cigarettes 1 20 0 11/30/1959 - 11/30/1979 Alcohol Use Standard Drinks/Week Comments Yes 0 (1 standard drink = 0.6 oz pur e alcohol) wine 3 per day Sex and Gender Information Value Date Recorded Sex Assigned at Not on file Gender Identity Not on file Sexual Orientation Not on file Last Filed Vital Signs Vital Sign Reading Time Taken Comments Blood Pressure 130/70 05/12/2011 1:06 PM BREAKFAST ATTENDANT Pulse 62 05/12/2011 1:06 PM BREAKFAST ATTENDANT Temperature 36.8 ??C (98.3 ??F) 03/26/2011 1:37 PM CS T Respiratory Rate 16 03/31/2011 9:06 AM BREAKFAST ATTENDANT Oxygen Saturation 99% 03/31/2011 9:06 AM BREAKFAST ATTENDANT Inhaled Oxygen Concentration - - Weight 61.2 kg (135 lb) 07/17/2011 1:05 PM CDT Height 161.3 cm (5' 3.5) 03/31/2011 9:06 AM BREAKFAST ATTENDANT Body Mass Index 23.54 03/31/2011 9:06 AM BREAKFAST ATTENDANT Plan of Treatment Health Maintenance Due Date Last Done Comments Zoster/Shingles (2 of 3) 02/27/2014 01/02/2014 DTaP/Tdap/Td (2 - Tdap) 10/03/2020 10/04/19 11, 06/12/2004, 10/18/2003 COVID-19 Vaccine (3 - season) 2022 06/14/2020, 05/24/2020 Medicare Annual Wellness Visit 04/26/2023 Influenza (#1) 2023 01/10/2020, 12/25, 01/19/2018, Additional history exists Colonoscopy Discontinued 03/25/2005 Pneumococcal 65+ Yrs Completed 01/17/2016, 04/26/2009, 02/02/2005 HepA Aged Out No longer eligi ble based on patient's age to complete this topic HepB Aged Out No longer eligi ble based on patient's age to complete this topic Hib Aged Out No longer eligi ble based on patient's age to complete this topic IPV (Polio) Aged Out No longer eligi ble based on patient's age to complete this topic MCV4 Aged Out No longer eligi ble based on patient's age to complete this topic Advance Directives * Full Code (Latest Code Status on File) Date Activated Date Inactivated Comments 10/15/2008 9:23 PM 10/16/2008 5:20 PM * Full Code Date Activated Date Inactivated Comments 02/29/2008 5:40 PM 03/02/2008 4:52 PM * Full Code Date Activated Date Inactivated Comments 05/23/2006 6:55 PM 05/26/2006 12:14 PM * Full Code Date Activated Date Inactivated Comments 11/18/2005 2:08 AM 11/19/2005 9:07 AM Care Teams Jingle Writer Relationship Specialty Start Date End Date Anna Duggan MD [address] [place] [address] PCP - General 01/04/07
--- OUTSIDE RECORDS SUMMARY | 2023-11-04 15:54 | XMS_ITS | Encounter Summary ---
[facility] Address [address] [address] Care Team Providers Care Horticultural Specialty Grower Field Name Role Phone Anna Duggan MD Primary Care Provider [phone] Encounter Details Date Type Department Care Team (Latest Contact Info) Description 05/27/2004 [facility] Zachary Vergara MD [address] [place] [phone] Social History Tobacco Use Types Packs/Day Years [...] on file documented as of this encounter Procedure Notes * Zachary Vergara - 05/27/2004 12:00 AM RECREATION SUPERVISOR DATE OF SURGERY: 05/28/2003 STAFF SURGEON: Zachary Vergara MD. PREOPERATIVE DIAGNOSIS: POSTOPERATIVE DIAGNOSIS: NAME OF OPERATION: 1. Selective coronary angiography and left heart catheterization. 2. Injection off of vein graft to the left anterior descending. 3. Intravascular ultrasound of left main. INDICATIONS FOR PROCEDURE: Unstable angina in a patient with known coronary artery disease. PRIMARY POPCORN MACHINE OPERATOR: Dr. Anand Thao and Dr. Vergara. PROCEDURE SUMMARY: The patient was prepped and draped in a standard fashion and a 4 [place] sheath was placed in the right femoral artery. A Carli left 4 diagnostic catheter initially was advanced into the aortic root but the left main could not be selectively cannulated so it was exchanged for a JL3.5 diagnostic catheter. Left main was selectively cannulated and 200 mcg of intracoronary nitroglycerin was given. On initial cannulation, there was significant dampening noted in the left main but the catheter was repositioned and standard views of the left system were taken when the pressure wave form was not dampening. CIRCUMFLEX: Circumflex is a left dominant system and gives off a large obtuse marginal 1 branch after it's take off. And after this obtuse marginal 1 branch, AV groove circumflex gives off a large second obtuse marginal branch and then continues into the posterior interventricular sulcus as a left dominant LPDA. There is mild to moderate disease noted in the ostia of the first obtuse marginal 1 vessel but it is a small caliber vessel. The rest of the circumflex system does not appear to have any angiographic obstructive disease. LEFT MAIN: Left main has moderate eccentric disease in it, especially in the ANTONIO caudal view. SAVANA-III flow is preserved in left main and angiographically, there appears to be at least 30% to 40% eccentric narrowing involving the proximal one-third of the left main. Distally left main bifurcates into a circumflex and left anterior descending system. LEFT ANTERIOR DESCENDING: Left anterior descending is 100% occluded after the takeoff of a large diagonal branch. There is mild to moderate disease present in the ostia of this diagonal vessel but not angiographically flow limiting. SAVANA-III flow is preserved in this vessel. There is no antegrade flow noted in the mid left anterior descending after take off of this diagonal branch. RIGHT CORONARY ARTERY: The right coronary artery was selectively cannulated with a Carli right 4 diagnostic catheter and standard views of the right system demonstrated a right nondominant system. The caliber of the right coronary artery is also very small and there was pressure wave form dampening noted with a 4 [place] JR4 diagnostic catheter. SAPHENOUS VEIN GRAFT TO LEFT ANTERIOR DESCENDING: Saphenous vein graft to left anterior descending was selectively cannulated and 200 mcg of intragraft nitroglycerin was given and post nitroglycerin, standard views of the left system were obtained which demonstrated a widely patent graft to the left anterior descending. And distal to the graft insertion, left anterior descending caliber is very small but no obstructive angiographic disease noted in the left anterior descending. No major diagonal branches seen coming off the left anterior descending either. Mid left anterior descending appears to have 40% to 50% eccentric narrowing in its middle one-third but caliber is again less than 2 mm. INTRAVASCULAR ULTRASOUND OF LEFT MAIN: Because of the possibility of eccentric plaque in the left main, multiple views initially were obtained but it was decided to perform an intravascular ultrasound. A 4 [place] sheath was exchanged for a 6 [place] sheath. Initially a JL3.5 guiding catheter was advanced but we were unable to cannulate the left main with this catheter and this was exchanged over the wire for a JL3.0 guiding catheter. The lesion in the left main was crossed with an [place] wire and multiple intravascular ultrasound runs were performed after giving off 200 mcg of intracoronary nitroglycerin. And multiple runs of the left main were suggestive of mild plaque in the left main only which was by area 30% only. The minimal lumen area in the left main varied from 10 to 12 sq. mm suggestive of not any hemodynamically significant lesions. HEMODYNAMICS: A 4 [place] angulated pigtail was advanced into the left ventricular cavity and left ventricular end-diastolic pressure was 40 mmHg. Because of underlying renal insufficiency, no contrast injection was performed. ADJUVANT THERAPY: Patient was given heparin for targeticity of 250 to 300 seconds. ASSESSMENT: 1. Severe one vessel disease involving mid left anterior descending but with a widely patent graft to the left anterior descending. Left anterior descending caliber is diffusely small but no focal angiographic obstructive disease in it. 2. No focal obstructive angiographic disease in a left dominant circumflex and its sub branches. 3.. Mild plaque in the left main and by IVUS criteria not significant. 4. Mild left ventricular diastolic dysfunction. PLAN: Medical management with aggressive risk factor modification is recommended. There is possibility of vasospastic component, especially in the left main and patient could benefit from calcium channel blockers or long-acting nitrates. As she has borderline creatinine, aggressive hydration will be recommended. Diuretics will be withheld for 24 hours and a repeat BUN and creatinine should be done within one week to assess for any contrast induced nephropathy. sac Dictated: 05/28/2004 13:14:31 Zachary Vergara MD Transcribed: 05/28/2004 13:48:30 Doc #: [id number] cc: Juan Carlos Srivastava MD, Attending DO NOT SIGN UNLESS PRESENT FOR PROCEDURE I attest that I was present for and participated in the woods portions of this procedure(s) in compliance with the Health Care Financing Administration Teaching Physician Guidelines. Signed Date Regions Staff Physician 1 Page 2 Patient Name: SOFY JOSEPH OPERATIVE REPORT CONFIDENTIAL MEDICAL RECORD [address] [address] Page 1 Patient: SOFY JOSEPH Location: 7W HPN: Admit Date: 05/27/2004 Date of : 1940 Discharge Date: OPERATIVE REPORT EATION SUPERVISOR documented in this encounter Plan of Treatment Not on file documented as of this encounter Visit Diagnoses Not on filedocumented in this encounter Care Teams Horticultural Specialty Grower Field Relationship Specialty Start Date End Date Anna Duggan MD [address] [place] [address] PCP - General 01/04/07 documented as of this encounter
--- OUTSIDE RECORDS SUMMARY | 2023-11-04 15:54 | XMS_ITS | Encounter Summary ---
[facility] Organization [facility] Address [address] [address] Care Team Providers Care Technician Name Role Phone Anna Duggan MD Primary Care Provider [phone] Encounter Details Date Type Department Care Team (Latest Contact Info) Description 05/27/2004 [facility] Anand Thao MD [id number] [place], [place] [address] Social History Tobacco Use Types Packs/Day Years [...] on file documented as of this encounter Consult Notes * Anand Thao - 05/27/2004 12:00 AM INFORMATION SYSTEMS SECURITY DEVELOPER DATE OF CONSULTATION: 05/28/2004 CONSULTING SERVICE: Cardiology REQUESTING PHYSICIAN: Juan Carlos Srivastava MD Thank you very much for asking me to see your nice patient in consultation regarding her episode of severe prolonged chest pain yesterday. As you know, she is a fairly complex 63-year-old woman who has been seen by my partner, Dr. Vergara, in the past (actually in 07/2003). At that time, she had chest pain and, with a history of coronary artery bypass grafting, it was felt that she should undergo angiography. This was done in 07/2003, and the vein graft to the mid LAD was patent. Her right-sided filling pressures were normal. The LAD was occluded after the first diagonal. There was no other significant disease. The circumflex was a dominant vessel, but had no significant disease in it, and she was treated medically. She has done fairly well since that time, but, as you know, she was admitted yesterday with a prolonged episode of severe chest pain. She says it was a heavy anterior tightness which radiated to her back and it was similar to the pain which she had in 1991 prior to her bypass. She received several nitroglycerin which did relieve the discomfort. So, far her troponins have been normal. As you know, on 05/16/2004, she was seen at [facility] by cardiology because of an episode of heart failure. At that time, she was noted to have anterior and inferior Q waves, but she had only pleuritic chest pain. Her carvedilol was increased after that, and she was treated for heart failure. As you know, about 2 weeks prior to that, she had an episode of syncope where she actually fell and still has a bruise on her forehead. This was of sudden onset. She has also had some dizziness in the past when she saw Dr. Ursula ortiz in 07/2003. It was felt that, on this most recent episode, it was probably from dehydration, although with her history certainly would need to consider ventricular arrhythmias. I should also note that during yesterday's episode of chest pain, she had a significant amount of nausea, but no diaphoresis. She denies having any bleeding problems. No history of stroke. NO HISTORY OF CONTRAST DYE ALLERGY. The remainder of her review of systems is only positive for recent viral illness and she's had a cough. There has been a viral illness going around her family. Remainder of her complete review of systems is negative. PAST MEDICAL HISTORY 1. ASCVD. History of anterior wall myocardial infarction in 1992. She's had angioplasty 3 times and then finally underwent left internal mammary artery to the left anterior descending, but this failed and several months she had to have a redo bypass with a vein graft to the LAD. Her ejection fraction, on the most recent angiogram in 07/2003, was about 40%. Interestingly, she had a normal wedge pressure with a mean pulmonary artery pressure of 12 at that time and a left ventricular end-diastolic pressure of 15. On the left ventriculogram, it was not commented that she had a distinct anterior wall motion abnormality and it was felt to be more global. 2. She has a history of anxiety and depression. 3. Gastritis, status post cholecystectomy. 4. Hypertension. 5. Congestive heart failure. She is currently on carvedilol 25 mg b.i.d. as well as Demadex. FAMILY HISTORY: No premature coronary artery disease. SOCIAL HISTORY: She's been 3 times, twice and once. She is currently retired and lives with her daughter. HABITS: She does not smoke cigarettes. PHYSICAL EXAMINATION: General: On physical exam, she is alert, oriented and is not complaining of any chest pain this morning. She is in no acute distress. Vital signs: Her blood pressure is around 100/50. Heart rate is in the 60s and regular. She is afebrile. Respirations 16. Sats are 97% on room air. HEENT: Eyes with no icterus or proptosis. Mucous membranes are moist. No oropharyngeal lesions. Neck is supple. Jugular venous pressure is normal. Carotids with normal upstrokes and without bruits. Lungs: Clear. Cardiovascular: Regular rate and rhythm with a normal S1 and S2 and no significant murmurs. The PMI is not displaced. There is no S3. Abdomen: Soft and nontender. Extremities: No edema. Femoral pulses are 2+, right and left. Dorsalis pedis pulses are 1+, right and left. There is no femoral bruit. Skin: No rashes. Hematologic: She does have an ecchymosis on her forehead from the recent fall. Neurologic: Grossly normal motor and sensory function. LABORATORY STUDIES: Her troponin has been negative x 3. Her creatinine is elevated today - it is 1.4. I noted that when she was seen on 05/16/2004, her creatinine was 0.7. I suspect that she's probably mildly dehydrated from the increased Demadex. Her ECG is very abnormal and shows Q waves throughout the anterior and inferior leads. When compared to an ECG done in 11/2002, this is much different and shows marked changes in the anterior leads with virtual loss of all the new Q waves throughout the anterior leads. IMPRESSION 1. Chest pain. Consistent with angina. Despite the fact she has negative troponins, her pain, I think, is highly consistent with angina and, given the fact that she's had recent heart failure, new Q waves anteriorly and a recent episode of syncope, we should make sure that the LAD graft is patent. 2. Cardiomyopathy, ischemic. As described above, ejection fraction most recently was 40% in 07/2003. 3. Syncope. Somewhat concerning for ventricular arrhythmia, especially in the setting of these symptoms as noted above, but it could well be orthostatic. 4. Renal insufficiency. This is probably worsened from increased Demadex dosing after her recent hospitalization for heart failure. 5. Previous coronary artery bypass grafting as described above. RECOMMENDATIONS: Coronary angiography with assessment of the graft to the LAD, specifically. If this is normal, then I would ask my electrophysiology colleagues to consult on whether or not an electrophysiology study would be indicated in this setting. Her ejection fraction is in the range of 40%, but she did have recent syncope and she's got symptoms consistent with worsening heart failure in the past month or so. Thank you very much for asking me to be involved in her care. tdm Dictated: 05/28/2004 10:39:31 Anand Thao III, MD Transcribed: 05/28/2004 10:52:01 Doc #: [id number] cc: Juan Carlos Srivastava MD, Attending Cardiology 1 Page 2 Patient Name: SOFY JOSEPH CONSULTATION CONFIDENTIAL MEDICAL RECORD [address] [id number] Page 1 Patient: SOFY JOSEPH Location: 7W HPN: Admit Date: 05/27/2004 Date of : 1940 Discharge Date: CONSULTATION RMATION SYSTEMS SECURITY DEVELOPER documented in this encounter Plan of Treatment Not on file documented as of this encounter Visit Diagnoses Not on filedocumented in this encounter Care Teams Technician Relationship Specialty Start Date End Date Anna Duggan MD [address] [place] [address] PCP - General 01/04/07 documented as of this encounter
--- OUTSIDE RECORDS SUMMARY | 2023-11-04 15:54 | XMS_ITS | Encounter Summary ---
Author Organization [facility] [facility] Address [address], [place] [address] Care Team Providers Care Grease Refiner Operator Name Role Phone Anna Duggan MD Primary Care Provider [phone] Encounter Details Date Type Department Care Team (Latest Contact Info) Description 05/27/2004 [facility] Carlos Eduardo Hampton MD [address] [place] [id number] Social History Tobacco Use Types Packs/Day Years [...] as of this encounter Procedure Notes * Carlos Eduardo Hampton - 05/27/2004 12:00 AM LINE DANCER DATE OF SURGERY: STAFF SURGEON: Carlos Eduardo Hampton MD PREOPERATIVE DIAGNOSIS: POSTOPERATIVE DIAGNOSIS: NAME OF OPERATION: Cardiac electrophysiology testing and implantation of a dual chamber implantable cardioverter-defibrillator. INDICATIONS: Syncope, ischemic cardiomyopathy with ejection fraction at 35-40%. History of myocardial infarction and history of coronary artery bypass grafting. COMPLICATIONS: NONE. DESCRIPTION OF THE PROCEDURE: After consent form was obtained, the patient was brought to the cardiac electrophysiology laboratory in a fasting state. After sterile preparation, 1% lidocaine was utilized for local infiltration in the left pectoral region. Using the Seldinger technique, one 6 Jordanian sheath was inserted into the left subclavian vein. A 6 Jordanian quadripolar catheter was positioned using the Seldinger technique into the left subclavian vein and advanced to high right atrium, His region and right ventricular apex respectively. At baseline, the patient was in sinus rhythm with cycle length of 1,200 milliseconds, AH interval 94 milliseconds, HV 40 milliseconds, MA interval 140 milliseconds, QRS 100 milliseconds, QT 390 milliseconds. QRS morphology was normal. During incremental atrial pacing, shortest 1:1 AV conduction was present at 280 milliseconds and AV Wenckebach occurs at 260 milliseconds. During single atrial extrastimulation after drive train of 600 milliseconds, the atrial ERP was at 240 milliseconds. The AV william ERP was at 320 milliseconds. Sinus node recovery time was performed by rapid atrial pacing and correct sinus node recovery time was 350 milliseconds. Programed ventricular stimulation was then performed from right ventricular apex. Rapid monomorphic sustained ventricular tachycardia was induced with 3 extrastimuli of the drive train of 400 milliseconds with coupling interval of 240, 200 and 200 milliseconds. Ventricular tachycardia had the cycle length of 200 milliseconds with right bundle branch block and left axis deviation. The tachycardia lasted 18 seconds. The patient developed syncope and was successfully converted to normal sinus rhythm with 100 joule external biphasic shock. The patient subsequently woke up. The catheter and the sheath were removed. A 5 cm long skin incision was made infraclavicularly passing a guidewire. Using the sharp and blunt dissection, a pacemaker generator pocket was formed between the deep fascia and pectoral muscles. Using the Seldinger technique, a Medtronic pacing lead, model #6949-58CM, serial #[id number], was inserted into the left subclavian vein and advanced to right ventricular apex where it was screwed in. Sensed R wave 6 millivolts. Ventricular pacing threshold at 0.5 milliseconds was 0.5 volts, 0.7 mA, pacing impedance 689 ohms. Pacing at 10 volts had no diaphragmatic stimulation. The lead was then secured with single suture on single sleeve. Using the same technique at the same entry site, a Medtronic pacing lead model #5076-35CM, serial #[id number], was inserted into the left subclavian vein and advanced to the right atrial appendage where it was screwed in. Sensed P wave 2.7 millivolts. Atrial pacing threshold at 0.5 milliseconds was 0.8 volts, 1.9 mA, pacing impedance 541 ohms. Pacing at 10 volts had no diaphragmatic stimulation. The lead was then secured with single suture on single sleeve. After lavaging the generator pocket with antibiotic solution, both leads were connected to dual chamber Medtronic implantable cardioverter-defibrillator generator, model #44192, serial #[id number]. The generator was then positioned into the pocket and the incision was closed with 3 layers of absorbable sutures. The patient underwent transient general anesthesia with 7 mg of intravenous etomidate. Ventricular fibrillation was induced by T-shock. Ventricular fibrillation had a cycle length of 200 milliseconds and a 12 joules shock successfully converted ventricular fibrillation into sinus rhythm with shocking impedance of 39 ohms. After 3 minutes of resting, ventricular fibrillation was induced again by the same technique. It was appropriately detected by the device and 8 joules shocks successfully converted ventricular fibrillation into sinus rhythm with shocking impedance of 40 ohms. The patient's , therefore, is equal or less than 8 joules. The patient subsequently woke up. The device was then programmed to DDD mode with low rate 60 and upper rate 120. Mode switch programmed on AV delay at 350/320 milliseconds. For ventricular tachyarrhythmia detection 3 zones were programed with VT zone at 400 milliseconds, fast supraventricular tachycardia 320 milliseconds, VF zone 240 milliseconds. For the VT zone there is no treatment with therapy programed. It serves as a monitor only. For fast VT, the first treatment 2 burst pacing sequences followed by cardiac busting at 13 joules and then 30 joules x4. For ventricular fibrillation therapy, the first shock was programed at 13 joules and the remaining 5 shocks at 30 joules. The patient subsequently left the room in stable hemodynamic status. [email or web address] Dictated: 05/30/2004 14:40:22 Carlos Eduardo Hampton MD Transcribed: 05/30/2004 14:53:57 Doc #: [id number] cc: Sulma Yao MD, Primary Juan Carlos Srivastava MD, Attending DO NOT SIGN UNLESS PRESENT FOR PROCEDURE I attest that I was present for and participated in the woods portions of this procedure(s) in compliance with the Health Care Financing Administration Teaching Physician Guidelines. Signed Date [employer] Staff Physician 1 Page 2 Patient Name: SOFY JOSEPH OPERATIVE REPORT CONFIDENTIAL MEDICAL RECORD [address] [phone] Page 1 Patient: SOFY JOSEPH Location: 7W HPN: Admit Date: 05/27/2004 Date of : 1940 Discharge Date: OPERATIVE REPORT DANCER documented in this encounter Plan of Treatment Not on file documented as of this encounter Visit Diagnoses Not on filedocumented in this encounter Care Teams Grease Refiner Operator Relationship Specialty Start Date End Date Anna Duggan MD [address] [place] [address] PCP - General 01/04/07 documented as of this encounter
--- OUTSIDE RECORDS SUMMARY | 2023-11-04 15:54 | XMS_ITS | Encounter Summary ---
Author Organization [facility] Address [address] [address] Care Team Providers Care Medical Technologist Clinical Name Role Phone Anna Duggan MD Primary Care Provider [phone]- [phone] Encounter Details Date Type Department Care Team (Late st Contact Info) Description 01/29/2003 [facility] [address] [place] [address] Gamaliel Blancas MD [facility] [id number] [place] [address] CHEST PAIN NOS Social History Tobacco Use Types Packs/Day Years Used Date Smoking Tobacco: Never Assessed Sex and Gender Information Value Date Recorded Sex Assigned at Not on file Gender Identity Not on file Sexual Orientation Not on file documented as of this encounter Plan of Treatment Not on file documented as of this encounter Visit Diagnoses Diagnosis Chest pain, unspecified documented in this encounter Care Teams Medical Technologist Clinical Relationship Specialty Start Date End Date Anna Duggan MD [address] [place] [address] PCP - General 01/04/07 documented as of this encounter
--- OUTSIDE RECORDS SUMMARY | 2023-11-04 15:54 | XMS_ITS | Encounter Summary ---
Author Organization [facility] Address [address], [place] [address] Care Team Providers Care Outboard Motor Assembler Name Role Phone Anna Duggan MD Primary Care Provider Encounter Details Date Type Department Care Team (Late st Contact Info) Description 01/28/2003 [facility] [address] [place] [address] Gamaliel Balncas MD [facility] [address] [place] [address] [facility] Discharge summary Arteriosclerotic heart disease, Social History Tobacco Use Types Packs/Day Years Used Date Smoking Tobacco: Never Assessed Sex and Gender Information Value Date Recorded Sex Assigned at Not on file Gender Identity Not on file Sexual Orientation Not on file documented as of this encounter Progress Notes * Gamaliel Blancas - 01/28/2003 12:00 AM CDT documented in this encounter Plan of Treatment Not on file documented as of this encounter Visit Diagnoses Diagnosis Chest pain, unspecified documented in this encounter Care Teams Outboard Motor Assembler Relationship Specialty Start Date End Date Anna Duggan MD [address] [place] [address] PCP - General 01/04/07 documented as of this encounter
--- OUTSIDE RECORDS SUMMARY | 2023-11-04 15:54 | XMS_ITS | Encounter Summary ---
Author Organization [employer] Address [address] [address] Care Team Providers Care Instructional Design Specialist Name Role Phone Anna Duggan MD Primary Care Provider [phone] Encounter Details Date Type Department Care Team (Latest Contact Info) Description 08/22/2003 [facility] Shiva Chris MD [address] [place] [id number] Social History Tobacco Use Types Packs/Day Years [...] as of this encounter Procedure Notes * Shiva Chris - 08/22/2003 12:00 AM CDT Please note this will also serve as a same day discharge note for a same day procedure. DATE OF SURGERY: 08/22/03 STAFF SURGEON: Shiva Chris MD PREOPERATIVE DIAGNOSES: 1. Known coronary artery disease status post multiple previous left anterior descending coronary artery angioplasties with left internal mammary artery bypass grafting to the left anterior descending acutely failing with large anterior wall myocardial infarction with subsequent single vessel surgical myocardial revascularization with a vein graft to the left anterior descending; known moderately reduced left ventricular systolic function with recent increasing dyspnea. 2. Apparent chronic hypertension. 3. Dyslipidemia, on lipid-lowering therapy. POSTOPERATIVE DIAGNOSES: 1. Single vessel angiographic [place] vessel obstructive coronary artery disease. 2. Patent reverse saphenous vein graft to the mid left anterior descending coronary artery. 3. Mildly elevated left ventricular end-diastolic pressure suggesting left ventricular diastolic abnormality/dysfunction. 4. Mild left ventricular chamber enlargement with moderately reduced left ventricular systolic function. 5. Peripheral vascular disease. NAME OF OPERATION: Right and left heart catheterization, left ventriculogram, [place] vessel and graft coronary angiography, right femoral artery sheathogram. INDICATIONS: The patient is a 62-year-old female with known ischemic heart disease involving the left anterior descending coronary artery previous multiple balloon angioplasties. Approximately 11 years ago in [place] she underwent a left internal mammary artery graft to the mid left anterior descending which acutely failed with a large anterior wall myocardial infarction. She underwent repeat surgical myocardial revascularization using a vein graft to the left anterior descending. More recently, she has noted increasing dyspnea on exertion. This prompted her to be seen by Dr Zachary Vergara, one of my colleagues, 5 days ago who recommended invasive cardiac evaluation. Dr Vergara is out of the area, and the patient has been admitted to the outpatient care unit for the above-mentioned procedures. I have been asked to perform these procedures. Potential risks and complications have been discussed with the patient by Dr Vergara, as well as the cardiac catheterization laboratory nurse clinician (potential risks and complications to include, but not exclusive of, the following: Pain, bleeding, infection, damage to the access vessels, the great vessels of the heart, or the heart itself, possible atheroemboli or thrombo-emboli with potential central nervous system, ocular, renal, cardiac, or extremity damage, dysrhythmia, contrast reaction, , etc.), and verbal, as well as written, consent to proceed was obtained. PROCEDURE: We elected to attempt a right femoral artery vascular access approach. The patient reported that in the past she had been told, my blood vessel is cement and it will be hard to get back into. She was given small aliquots of intravenous Versed for sedation, as well as intravenous fentanyl for analgesia. The right femoral artery was identified by fluoroscopically locating the medial border of the right femoral head, by identifying the maximum pulsation in the right groin area (the right femoral artery pulse is at best 1+ on a scale of 0-4+) and by identifying the usual and customary landmarks in the right groin area. One percent lidocaine solution, 10 cc, was instilled into the skin and subcutaneous tissues overlying and surrounding the right femoral artery. Three initial blind punctures did not gain arterial access, gained a venous access once, but it was suboptimal return. Puncture needles were removed, and hemostasis was achieved by direct local manual compression. At this time we utilized a Site-Rite to locate the right femoral artery and utilizing a micropuncture technique were able to place a 4-Wallisian vascular sheath into a very sclerotic right femoral artery. At this time an initial puncture was made unsuccessfully to locate the right femoral vein. Utilizing the Site-Rite we located the right femoral vein. A puncture was made with the standard needle gaining venous access followed by placement of a 7-Wallisian vascular sheath. There was no hematoma noted in the groin area during or upon termination of the procedure. At this time a balloon flotation [place] catheter was utilized for the formal right catheterization. Thermodilution cardiac outputs were obtained and were averaged. There was no marked variation between samples. Selective [place] vessel and graft coronary angiography were then performed using 4-Wallisian diagnostic catheters (a JL3.5 was required to engage the left main coronary artery, JR4) and single plane imaging with nonionic contrast. A formal left heart catheterization was performed using a 145 degree angulated pigtail catheter. This same pigtail catheter was utilized for performance of a biplane left ventriculogram with imaging in a 30 degree right anterior oblique and 60 degree left anterior oblique projection using 50 cc of nonionic contrast. The patient tolerated the procedure well without chest discomfort, dysrhythmia, or hemodynamic deterioration. Upon termination of the procedure, she was transported to the outpatient care unit for sheath removal, which is in progress at the time of this dictation. Hemostasis will be achieved by direct local manual compression followed by a period of bedrest. The procedure results have been discussed with the patient inside of the cardiac catheterization suite and outside of the cardiac catheterization suite and her questions answered. I have contacted her daughter by phone and updated her on the diagnostic findings. A total of 155 cc of nonionic contrast was administered. Total fluoroscopic time is 6.6 minutes. DIAGNOSTIC FINDINGS: FLUOROSCOPY: No significant epicardial coronary artery calcification is visualized. ATKA VESSEL CORONARY ANGIOGRAPHY: LEFT MAIN CORONARY ARTERY: This is a moderate angiographic caliber vessel without angiographic evidence of focal obstructive disease which bifurcates. LEFT CIRCUMFLEX CORONARY ARTERY: This is a dominant vessel. There is a small angiographic caliber first obtuse marginal branch (less than or equal to 2.00 mm) with non-obstructive ostial plaque. There is a small second obtuse marginal branch without angiographic evidence of significant focal obstructive disease, as well as a small left posterior descending coronary artery branch also without angiographic evidence of significant focal obstructive disease. LEFT ANTERIOR DESCENDING CORONARY ARTERY: There is a small to moderate angiographic caliber, long in length, first diagonal branch which has non-obstructive plaque. The left anterior descending is 100% occluded post the first diagonal branch origin. RIGHT CORONARY ARTERY: This is a smaller caliber vessel (less than or equal to 2.00 mm at most) with non-obstructive ostial plaque. No collateral vessels are definitely visualized. BYPASS CONDUIT: There is a patent reverse saphenous vein graft from the aorta inserting into the mid left anterior descending. There is no anastomotic obstructive disease and no significant obstructive disease is present in the body or shaft of this graft. The recipient left anterior descending is of smaller caliber in its mid and apical segments. There is no angiographic evidence of significant focal obstructive disease distal to the graft insertion. LEFT VENTRICULOGRAM: The biplane left ventriculogram shows left ventricular chamber to be mildly enlarged with inferoapical akinesis, as well as apical septal akinesis. Mild mitral insufficiency (angiographically 1-2+) is present. Global left ventricular systolic function is probably moderately reduced with a visually estimated ejection fraction of 40%. HEMODYNAMICS: Right atrial mean pressure 2 mmHg. Right ventricular pressure 20/5. Right pulmonary capillary mean pressure 4 mmHg. Right pulmonary artery pressure 23/5 with a mean of 12. Thermodilution cardiac outputs average 4.7 liters per minute, index 2.74 liters per minute per meter squared. Left ventricular pressure 98/15. Ascending aorta pressure 103/42 with a mean of 65. ASSESSMENT/ DISCUSSION/ RECOMMENDATIONS: This lady has single vessel obstructive epicardial coronary artery disease and has sustained previous anteroapical wall myocardial infarction, but has a patent vein graft to the left anterior descending. There does not appear to be a role for additional myocardial revascularization either from a catheter or surgical-based standpoint. Mild mitral insufficiency is present with no gradient measured across the aortic valve. I cannot readily explain her increasing dyspnea on exertion based on the present database. We are recommending she follow up with Dr Zachary Vergara in 2-4 weeks for further review of the data. Aggressive secondary prevention measures need to be pursued. We did a right femoral artery sheathogram which shows the sheath to enter above the femoral bifurcation. Her femoral and iliac vessel are of small caliber without angiographic evidence of focal significant obstructive disease. The patient will be kept at bedrest for 4 hours post sheath removal. If her groin access site is stable, she will then be allowed to ambulate and will be discharged home to limit her physical activities over the next 48 hours. j Dictated: 08/22/2003 14:11:50 Shiva Chris MD Transcribed: 08/22/2003 16:21:07 Doc #: [id number] cc: Phill Coles MD, Attending Zachary Vergara MD, Referring Sulma Yao MD Cardiac Catheterization Lab DO NOT SIGN UNLESS PRESENT FOR PROCEDURE I attest that I was present for and participated in the woods portions of this procedure(s) in compliance with the Health Care Financing Administration Teaching Physician Guidelines. Signed Date Regions Staff Physician 1 Page 3 Patient Name: SOFY JOSEPH Visit Date: 08/22/2003 OUTPATIENT OPERATIVE REPORT CONFIDENTIAL MEDICAL RECORD [address] [id number] Page 1 Patient: SOFY JOSEPH [id number] Date of : 1940 Visit Date: 08/22/2003 OUTPATIENT OPERATIVE REPORT documented in this encounter Plan of Treatment Not on file documented as of this encounter Visit Diagnoses Not on filedocumented in this encounter Care Teams Instructional Design Specialist Relationship Specialty Start Date End Date Anna Duggan MD [address] [place] [address] PCP - General 01/04/07 documented as of this encounter
--- OUTSIDE RECORDS SUMMARY | 2023-11-04 15:54 | XMS_ITS | Clinical Summary ---
Author Organization [facility] Address [place], [place] [address] Care Team Providers Care Drosophere Operator Name Role Phone Bhanu Avendaño MD Unavailable [phone] Thomas Huynh MD Unavailable [phone] Rachel Rock MD Unavailable Lina Major MD Primary Care Provider Syd Spence Unavailable [phone] Allergies Active Allergy Reactions Criticality Noted Date Comments Adhesive Tape-Silicones Erythema 04/06/2022 Buspirone Other - Describe In Comment Field 07/30/2008 Fatigue Citalopram Diaphoresis Low 02/09/2018 Latex Rash 04/06/2022 Ticagrelor Dyspnea Medium 04/07/2022 Medications Medication Sig Dispensed Refills Start Date End Date Status ascorbic acid, vitamin C, (VITAMIN C) 500 mg tablet Take 1 Tablet (500 mg) by mouth once daily. 0 11/11/2020 Active potassium chloride (KLOR-CON) 20 mEq extended-release tablet (part/cryst)Indicati ons:Chronic systolic congestive heart failure (HC) Take 1 Tablet (20 mEq) by mouth once daily with a meal. 90 Tablet 10/06/2022 Active albuterol (PROVENTIL) 0.083 % neb solutionIndications: Chronic obstructive pulmonary disease, unspecified COPD type (HC) Inhale 3 mL (2.5 mg) via a nebulizer every 4 hours if needed for Shortness Of Breath or Wheezing. 75 mL 02/24/2023 Active atorvastatin (LIPITOR) 80 mg tabletIndications:Dy slipidemia, goal LDL below 70 Take 1 Tablet (80 mg) by mouth at bedtime. 90 Tablet 3 02/24/2023 Active calcium carbonate-cholecalci ferol, 600mg-200 units, (CALTRATE-600 + VIT D) tabletIndications:Os teopenia, unspecified location Take 1 Tablet by mouth once daily with a meal. 90 Tablet 3 02/24/2023 Active cholecalciferol (VITAMIN D3) 1,000 unit tabletIndications:Os teopenia, unspecified location Take 1 Tablet (1,000 units) by mouth once daily. 90 Tablet 2 02/24/2023 Active cyanocobalamin (Vitamin B-12) 1,000 mcg tabletIndications:Vi tamin B12 deficiency Take 1 Tablet (1,000 mcg) by mouth once daily. 90 Tablet 3 02/24/2023 Active fluticasone (50 mcg per actuation) nasal solution (FLONASE)Indications :Chronic nasal congestion Inhale 2 Sprays to both nostrils once daily. 48 mL 3 02/24/2023 Active losartan (COZAAR) 25 mg tabletIndications:Pr imary hypertension Take 1 Tablet (25 mg) by mouth once daily. 90 Tablet 3 02/24/2023 Active omeprazole 20 mg tabletIndications:Ch ronic GERD Take 1 Tablet (20 mg) by mouth once daily before a meal. 90 Tablet 1 02/24/2023 Active albuterol HFA (PRO-AIR; VENTOLIN; PROVENTIL) 90 mcg/actuation inhalerIndications:M ild intermittent asthma without complication INHALE 2 PUFFS BY MOUTH EVERY 4 HOURS IF NEEDED FOR SHORTNESS OF BREATH OR WHEEZING. 18 Each 1 05/18/2023 Active levalbuterol (XOPENEX) 0.31 mg/3 mL nebulizationIndicati ons:Mild intermittent asthma without complication Inhale 3 mL (0.31 mg) via a nebulizer every 8 hours if needed for Shortness Of Breath or Wheezing. 75 mL 1 05/19/2023 Active hydrOXYzine HCL (ATARAX) 25 mg tabletIndications:Ge neralized anxiety disorder TAKE 1 TAB BY MOUTH AT BEDTIME IF NEEDED FOR ANXIETY/SLEEP. TAKE 1 TAB BY MOUTH EVERY 6HRS IF NEEDED 90 Tablet 06/09/2023 Active nitroglycerin (NITROSTAT) 0.4 mg sublingual tabletIndications:Ch est pressure,Ischemic cardiomyopathy,Coron maynor artery disease, unspecified vessel or lesion type, unspecified whether angina present, unspecified whether [place] or transplanted heart Place 1 Tablet (0.4 mg) under the tongue every 5 minutes if needed for Chest Pain. 25 Tablet 3 07/13/2023 Active metoprolol succinate (TOPROL XL) 25 mg Sustained-Release tabletIndications:Co ronary artery disease due to lipid rich plaque Take 0.5 Tablets (12.5 mg) by mouth once daily. 45 Tablet 3 08/04/2023 Active spironolactone (ALDACTONE) 25 mg tabletIndications:Es sential hypertension Take 0.5 Tablets (12.5 mg) by mouth once daily. 45 Tablet 3 08/04/2023 Active clopidogreL (PLAVIX) 75 mg tabletIndications:Co ronary artery disease, unspecified vessel or lesion type, unspecified whether angina present, unspecified whether [place] or transplanted heart Take 1 Tablet (75 mg) by mouth once daily. 90 Tablet 3 08/26/2023 Active ferrous sulfate, 65 mg elemental, tabletIndications:An emia, unspecified type Take 1 tablet on Wednesday, Wednesday, Wednesday, and Wednesday. 08/26/2023 Active warfarin (COUMADIN) 1 mg tabletIndications:Ap ical mural thrombus,Anticoagula tion monitoring, INR range 2-3,ICD (implantable cardioverter-defibri llator) in place Take by mouth 3 mg (1 mg x 3) every Wed, Devi; 4 mg (1 mg x 4) all other days in the evening OR as directed 340 Tablet 09/07/2023 Active torsemide (DEMADEX) 20 mg tabletIndications:Ch ronic systolic congestive heart failure (HC),Fluid retention Take 1 Tablet (20 mg) by mouth once daily. 90 Tablet 3 09/06/2023 Active magnesium oxide 250 mg magnesium tabletIndications:Is chemic cardiomyopathy TAKE 1 TABLET BY MOUTH ONCE DAILY. 100 Tablet 2 09/07/2023 Active FLUoxetine (PROZAC) 20 mg capsuleIndications:C hronic depression Take 1 Capsule (20 mg) by mouth every morning. 90 Capsule 1 09/07/2023 Active potassium chloride (K-TAB) 10 mEq extended-release tabletIndications:Hy pokalemia TAKE 2 TAB BY MOUTH EVERY DAY WITH MEAL 180 Tablet 1 09/21/2023 Active lidocaine 5 % topical patchIndications:Lum coffee bar attendant pain Apply on dry, clean, hairless skin. Apply 1 patch to painful area of skin for up to to 12 hours within 24 hour period. 30 Patch 11 10/06/2023 Active lidocaine 5 % topical patchIndications:Lum coffee bar attendant pain Apply on dry, clean, hairless skin. Apply 1 patch to painful area of skin for up to to 12 hours within 24 hour period. 30 Patch 11 10/06/2023 4 Discontinue d(*Medicati on adjustment) Active Problems Problem Noted Date Diagnosed Date Atherosclerotic heart diseas e of [place] coronary artery with other forms of angina pectoris 06/25/2023 Mild cognitive impairment 10/20/2022 Chronic depression 10/20/2022 Renal mass, left 10/20/2022 DEIRDRE (stress urinary incontinence, female) 2021 Controlled type 2 diabetes m ellitus with complication, without long-term current use of insulin 01/25/2020 PMR (polymyalgia rheumatica) 10/31/2017 Overview: Diagnosed 05/2017 with neck and shoulder pain. See Rheum ([place]) Need for pneumocystis prophylaxis 07/12/2017 Overview: Due to prolonged prednisone Esophageal dysmotility 07/08/2017 History of smoking 30 or more pack years 018 Memory difficulty 06/08/2017 Nonintractable headache 06/03/2017 Vision changes 06/03/2017 CAD (coronary artery disease) 06/01/2017 Overview: History CABG, PTCA, cardiac arrest Chronic systolic congestive heart failure 2017 Generalized anxiety disorder 02/19/2017 Anticoagulation monitoring, INR range 2-3 [Z79.0 1] 08/31/2016 ICD (implantable cardioverter-defibrillator) in place 06/21/2013 CKD (chronic kidney disease) stage 3, GFR 30-59 ml/min 02/17/2013 Chest pain 02/17/2013 Confusion 12/14/2011 ACP (advance care planning) 12/14/2011 Overview: Patient has identified Health Care Agent(s): No Add Health Care Agents: No Patient has Advance Care Plan Documents (Health Care Directive, POLST): No, referral made to Social Work Services. Patient has identified Specific Treatment Preferences: No Specific limits to treatment preferences NOT identified: ASSUME FULL TREATMENT. Ischemic cardiomyopathy 11/12/2011 Overview: 1990s Angina, PTCA in [place] Acute [place] with CABG: SPENCER to [facility] complicated by kink in graft with redo surgery + apical TN Out of hospital cardiac arrest with AICD pacer placement Lead replacement with new ICD pacer Recurrent hospitalizations for CHF in [place] and [place] Apical mural thrombus 11/12/2011 Overview: H/o pulmonary embolus on anticoagulation GERD (gastroesophageal reflux disease) 2 Dyslipidemia, goal LDL below 70 11/12/2011 Anemia, unspecified 11/12/2011 Overview: Iron deficiency, declines Iron supplements COPD (chronic obstructive pulmonary disease) Chronic cough 11/12/2011 Essential hypertension 11/12/2011 Presence of cardiac defibrillator 09/11/2011 Resolved Problems Problem Noted Date Diagnosed Date Resolved Date Dysphagia 07/06/2017 11/07/2017 Overview: With pain not responsive to prednisone Dysphagia 06/08/2017 07/12/2017 Neck pain, acute 06/03/2017 11/07/2017 Elevated sed rate 06/03/2017 11/07/2017 Elevated C-reactive protein (CRP) 06/03/2017 11/07/2017 Esophagus disorder 06/03/2017 8 Overview: 06/08/2017 esophagram: Markedly dilated upper esophagus Achalasia-like pattern on esophagram - differential diagnosis scleroderma, presbyesophagus Minimal peristalsis, relying almost entirely on gravity No masses Small to moderate hiatal hernia Anticoagulation goal of INR 2 to 3 12/16/2015 07/16/2017 Bronchitis 02/19/2013 11/07/2017 CKD (chronic kidney disease) 11/03/2012 06/10/2017 ACP (advance care planning) 02/20/2012 11/07/2017 Overview: Patient has identified Health Care Agent(s): Yes Add Health Care Agents: Yes Health Care Agent(s): Primary Health Care Agent: Sangeeta Dahl Relationship: daughter Phone: Secondary Health Care Agent: Relationship: Phone: Conservator: Relationship: Phone: Guardian: Relationship: Phone: Patient has Advance Care Plan Documents (Health Care Directive, POLST): No, referral made to Social Work Services. Patient has identified Specific Treatment Preferences: No Specific limits to treatment preferences NOT identified: ASSUME FULL TREATMENT. Hiatal hernia 11/12/2011 11/07/2017 Anxiety and depression 11/12/201111/03 Encounters Date Type Department Care Team Description 11/01/2023 Orders Only [address] [address] Lina Major MD Outside Order (Ordered by Carleen Clemens) 10/26/2023 Telephone [facility] [address] [place] [address] Lina Major MD Anticoagulation (Review INR recheck date) 10/21/2023 Telephone [facility] [address] [place] [address] Lina Major MD 10/20/2023 1:30 PM CDT Orders Only [address] [address] Lab[facility] 10/20/2023 Anticoagulation (warfarin) [facility] [address] [place] [address] 1, [facility] Anticoagulation 10/20/2023 Travel 10/14/2023 Telephone [facility] [place] [address] [place] [phone] Thomas Huynh MD Testing 10/07/2023 Anticoagulation (warfarin) [facility] [address] [place] [address] 1, [facility] Anticoagulation 10/06/2023 3:00 PM CDT Ancillary Procedure [facility] [address] [place] [address] 10/06/2023 2:00 PM CDT Office Visit [facility] [address] [place] [address] Lina Major MD Back Pain (Getting worse); Concerns (Would like to get hgb checked,); Medication Management (iron) 10/06/2023 Travel 09/18/2023 Refill [facility] [place] [address] [place] [phone] Thomas Huynh MD Refill Request (Potassium Chloride) 09/15/2023 Nurse Triage [facility] [address] [place] [address] Lina Major MD Leg Pain/problem (08/25 cardiology looked at) 09/13/2023 Anticoagulation (warfarin) [facility] [address] [place] [address] 1, [facility] Anticoagulation (Home care) 09/08/2023 Procedure Only [facility] [place] [address] [place] [address] Device Check (Remote Dual Chamber ICD Care... 09/06/2023 Refill [facility] [place] [address] [place] [phone] Thomas Huynh MD Refill Request (Torsemide) 09/06/2023 Refill [facility] [address] [place] [address] Lina Major MD Refill Request (Warfarin, Fluoxetine, Magnesium Oxide) 09/06/2023 Telephone [facility] [address] [place] [address] Lina Major MD Questions (Medication dosage) 09/06/2023 Telephone [facility] [address] [place] [address] Lina Major MD Anticoagulation (Warfarin dosing review) 09/06/2023 Anticoagulation (warfarin) [facility] [address] [place] [address] 1, [facility] Anticoagulation (HC) 08/30/2023 Telephone [facility] [place] [address] [place] [phone] Thomas Huynh MD Medication Management 08/26/2023 4:00 PM CDT Office Visit [facility] [address] [place] [address] Thomas Huynh MD Follow Up (S/P Angiogram with PCI on 07/21) 08/26/2023 Travel 08/12/2023 Telephone [facility] [place] [address] [place] [phone] Thomas Huynh MD Results 08/12/2023 Anticoagulation (warfarin) [facility] [address] [place] [address] 1, [facility] Anticoagulation 08/11/2023 2:15 PM CDT Orders Only [facility] [address] [place] [address] Lab[facility] 08/11/2023 Travel 08/10/2023 Refill [facility] [address] [place] [address] Lina Major MD Refill Request (Warfarin) from Last 3 Months Immunizations Name Administration Dates Next Due COVID-19 vaccine (Moderna Raphael corina 50mcg/0.25mL) ORAL WELDON 08/25/2021 COVID-19 vaccine (Pfizer-Bio NTech 30mcg/0.3mL) ORAL WELDON 02/06/2021,06/14/2020,05/24/2020 Influenza, High-dose Inactivated 01/17/2016,06/2015,02/12/2014 Influenza, IIV3 (Age >=3 years) 01/16/2013,01/24 Influenza, Inactivated AIIV4 (Age 65+ Years) Preserv Free 12/31/2022,01/12/2022,01/15/2021,2019 Influenza, Inactivated IIV3 (Age 65+ Years) Preserv Free 01/03/2019,01/19/2018,12/21/2016 Pneumococcal Poly,23-Valent (Pneumovax) 04/26/2009,02/02/2005 Pneumococcal conj 13-Valent (Prevnar 13) 01/17/2016 Td (Age >=7 Years) 06/12/2004,10/18/2003 Tdap 10/03/2010 Zoster (Zostavax-ZVL, live) 01/02/2014 Family History Medical History Relation Name Comments Stroke Daughter works as an RN Macular degeneration Father Rheum arthritis Father Alzheimer's disease Mother Cancer-breast Mother in her 70 s or early 80s Macular degeneration Mother Osteoarthritis Mother Osteoporosis Mother Macular degeneration Paternal Grandmother Rheum arthritis Paternal Grandmother Cancer-breast Sister Relation Name Status Comments Daughter Father Mother Paternal Grandmother Sister Social History Tobacco Use Types Packs/Day Years Used Date Smoking Tobacco: Former Cigarettes 1 35 0 [birth year]/26/1954 - 04/26/1989 Smokeless Tobacco: Never Tobacco Cessation:Counseling Given: Yes Alcohol Use Standard Drinks/Week Comments Not Currently 1 (1 standard drink = 0.6 oz pure alcohol) 1 glasses wine every week/ not much anymore PHQ-2 Answer Date Recorded PHQ-2 TOTAL SCORE 3 02/24/2023 Social Connections Answer Date Recorded Frequency of Communication with Friends and Fami ly 4 02/24/2023 Financial Resource Strain Answer Date R ecorded Difficulty of Paying Living Expenses 3 02/24/2023 Difficulty of Paying Living Expenses Not on file 02/24/2023 Food Insecurity Answer Date Recorded Worried About Running Out of Food in the Last Ye ar 2 02/24/2023 Transportation Needs Answer Date Record ed Lack of Transportation (Medical) 1 02/24/2023 Housing Stability Answer Date Recorded Unable to Pay for Housing in the Last Year 1 02/24/2023 Sex and Gender Information Value Date Recorded Sex Assigned at Not on file Gender Identity Not on file Sexual Orientation Not on file Obstetrics History Last Filed Vital Signs Vital Sign Reading Time Taken Comments Blood Pressure 109/58 10/06/2023 2:04 PM CDT Pulse 64 10/06/2023 2:04 PM CDT Temperature 36.9 ??C (98.4 ??F) 07/23/2023 8:52 AM CD T Respiratory Rate 16 08/26/2023 4:06 PM CDT Oxygen Saturation 98% 10/06/2023 2:04 PM CDT Inhaled Oxygen Concentration - - Weight 54.2 kg (119 lb 6.4 oz) 10/06/2023 2:04 P M CDT Height 160 cm (5' 3) 08/26/2023 4:06 PM CDT Body Mass Index 21.15 08/26/2023 4:06 PM CDT Plan of Treatment Upcoming Encounters Date Type Department Care Team (Late st Contact Info) Description 11/16/2023 1:20 PM CDT Appointment [facility] [address] [place] [address] 11/25/2023 3:00 PM CDT Office Visit [facility] [address] [place] [address] Syd Spence AuD [address] [place] [phone] 12/17/2023 Procedure Only [facility] [place] [address] [place] [phone] Health Maintenance Due Date Last Done Comments Zoster (shingles) series for age 50+ (1 of 2) 02/27/2014 01/02/2014 Tetanus booster 10/03/2020 10/03/2010, 05/27, 10/18/2003 COVID-19 vaccine series (2022- season) 2022 01/12/2022, 08/25/2021, 02/06/2021, Additional history exists Influenza for age 65+ 12/26/2023 12/31/2022 , 01/12/2022, 01/15/2021, Additional history exists Medicare Wellness for age 65+ 02/25/2024 02/24/2023, 08/25/2021 Depression screening for age 12+ 02/26/2024 02/25/2023, 02/24/2023, 02/24/2023, Additional history exists BMI (ht and wt on same day) for age 18+ 08/25/2024 08/26/2023, 08/04/2023, 05/26/2023, Additional history exists Tdap Completed 10/03/2010 Pneumococcal series for age 65+ Completed 01/17/2016, 04/26/2009, 02/02/2005 DEXA/DXA scan for age 65+ Completed 05/11/2023, Medical Devices Implanted Type Area Radio Frequency Engineer Device Identifier Shelf Expiration Date Model / Serial / Lot Secura Cv Pacemaker/Defi b Generators Chest Medtronic / [id number] / Secura Cv Pacemaker/Defi b Generators Chest Medtronic / [id number] / Icd Only- 6 Implanted:02/2016 by Bhanu Avendaño MD (Quantity not on file) ICD Only Chest Medtronic EVERA XT / [id number] / Lens Iol 21.5 Tecnis - [id number] Implanted:Qty : 1 on 07/31/2008 at [facility] Right: Eye [employer] [id number] / [id number] / Lens Iol 21.5 Tecnis - [id number] Implanted:Qty : 1 on 08/28/2008 at [facility] Left: Eye [employer] [id number] / / [id number] Procedures Procedure Name Priority Date/Time Associated Diagnosis Comments INR,POCT Routine 10/20/2023 1:39 PM CDT Apical mural thrombus Anticoagulation monitoring, INR range 2-3 [Z79.01] CBC WITH AUTO DIFFERENTIAL Routine 10/06/2023 3:18 PM CDT MARION (dyspnea on exertion) CBC WITH AUTO DIFFERENTIAL Routine 10/06/2023 3:18 PM CDT MARION (dyspnea on exertion) COMP METABOLIC PANEL Routine 10/06/2023 3:18 PM CDT MARION (dyspnea on exertion) Severe back pain PROTIME-INR STAT 10/06/2023 3:18 PM CDT Apical mural thrombus Anticoagulation monitoring, INR range 2-3 [Z79.01] CT SPINE LUMBAR WO STAT 10/06/2023 3: 09 PM CDT Lumbar back pain BASIC METABOLIC PANEL Routine 08/11/2023 2:50 PM CDT Atherosclerotic heart disease of [place] coronary artery with other forms of angina pectoris (HC) Coronary artery disease due to lipid rich plaque Essential hypertension HEMOGLOBIN Routine 08/11/2023 2:50 PM CDT Atherosclerotic heart disease of [place] coronary artery with other forms of angina pectoris (HC) Coronary artery disease due to lipid rich plaque Essential hypertension PROTIME-INR STAT 08/11/2023 2:50 PM CDT Apical mural thrombus Anticoagulation monitoring, INR range 2-3 [Z79.01] XR DXA BONE DENSITY 2 SITES AXIAL AND 1 SITE PERIPHERAL Routine 05/11/2023 11:49 AM RESIDENT CARE DIRECTOR Osteopenia, unspecified location Menopause from Last 3 Months or Most Recently Relevant to Health Maintenance Results * (ABNORMAL) INR,POCT (10/20/2023 1:39 PM CDT) INR 2.3(H) <1.3 10/20/2023 1:43 PM CDT [facility] Blood BLOOD SPECIMEN / Unknown 10/20/2023 1:39 PM CDT 10/20/2023 1:43 PM CDT Narrative [facility] - 10/20/2023 1:43 PM CDT ?Therapeutic Range 2.0-3.0 for most anticoagulated patients 2.5-3.5 or 4.0 for high risk patients Lina Major MD LABORATORY [facility] [address] [place] [address], * (ABNORMAL) CBC WITH AUTO DIFFERENTIAL (10/06/2023 3:18 PM CDT) WHITE BLOOD COUNT 7.3 4.5 - 11.0 thou/cu mm 10/06/2023 3:22 PM CDT [facility] RED BLOOD COUNT 3.80(L) 4.00 - 5.20 mil/cu mm 10/06/2023 3:22 PM CDT [facility] HEMOGLOBIN 11.9(L) 12.0 - 16.0 g/dL 10/06/2023 3:22 PM CDT [facility] HEMATOCRIT 36.3 33.0 - 51.0 % 10/06/2023 3:22 PM CDT [facility] MCV 96 80 - 100 fL 10/06/2023 3:22 PM CDT [facility] MCH 31.3 26.0 - 34.0 pg 10/06/2023 3:22 PM CDT [facility] MCHC 32.8 32.0 - 36.0 g/dL 10/06/2023 3:22 PM CDT [facility] RDW 14.2 11.5 - 15.5 % 10/06/2023 3:22 PM CDT [facility] PLATELET COUNT 137(L) 140 - 440 thou/cu mm 10/06/2023 3:22 PM CDT [facility] MPV 9.6 6.5 - 11.0 fL 10/06/2023 3:22 PM CDT [facility] % NEUT 59.8 % 10/06/2023 3:22 PM CDT [facility] % LYMPH 27.4 % 10/06/2023 3:22 PM CDT [facility] % MONO 9.1 % 10/06/2023 3:22 PM CDT [facility] % EOS 3.4 % 10/06/2023 3:22 PM CDT [facility] % BASO 0.3 % 10/06/2023 3:22 PM CDT [facility] ABSOLUTE NEUTROPHILS 4.4 1.7 - 7.0 thou/cu mm 10/06/2023 3:22 PM CDT [facility] ABSOLUTE LYMPHOCYTES 2.0 0.9 - 2.9 thou/cu mm 10/06/2023 3:22 PM CDT [facility] ABSOLUTE MONOCYTES 0.7 <0.9 thou/cu mm 10/06/2023 3:22 PM CDT [facility] ABSOLUTE EOSINOPHILS 0.3 <0.5 thou/cu mm 10/06/2023 3:22 PM CDT [facility] ABSOLUTE BASOPHILS 0.0 <0.3 thou/cu mm 10/06/2023 3:22 PM CDT [facility] Blood BLOOD SPECIMEN / Unknown Venipuncture / Unknown 10/06/2023 3:18 PM CDT 10/06/2023 3:18 PM CDT Lina Major MD HEMATOLOGY [facility] [address] [place] [address], * (ABNORMAL) PROTIME-INR (10/06/2023 3:18 PM CDT) Only the most recent of2 resultswithin the time period is included. INR 2.5(H) <1.3 10/06/2023 9:14 PM CDT [facility] PROTIME 27.0(H) 10.3 - 12.3 sec 10/06/2023 9:14 PM CDT [facility] Blood BLOOD SPECIMEN / Unknown Venipuncture / Unknown 10/06/2023 3:18 PM CDT 10/06/2023 3:18 PM CDT Narrative [facility] - 10/06/2023 9:14 PM CDT ?Therapeutic Range 2.0-3.0 for most anticoagulated patients 2.5-3.5 or 4.0 for high risk patients The INR is only used for patients on stable oral anticoagulant therapy. It makes no significant contribution to the diagnosis or treatment of patients whose Protime is prolonged for other reasons. INR results are increased when heparin levels exceed 1.0 U/mL, which corresponds to an aPTT >125 seconds if the patient is on UFH. Lina Major MD HEMATOLOGY [facility] [address] [place] [address], * (ABNORMAL) COMP METABOLIC PANEL (10/06/2023 3:18 PM CDT) SODIUM 144 136 - 145 mmol/L 10/06/2023 11:20 PM CDT [facility] POTASSIUM 4.9 3.5 - 5.1 mmol/L 10/06/2023 11:20 PM CDT [facility] CHLORIDE 105 98 - 107 mmol/L 10/06/2023 11:20 PM T [facility] CO2,TOTAL 27 22 - 29 mmol/L 10/06/2023 11:20 PM T [facility] ANION GAP 12 5 - 18 10/06/2023 11:20 PM T [facility] GLUCOSE 87 70 - 99 mg/dL 10/06/2023 11:20 PM T [facility] CALCIUM 9.9 8.8 - 10.2 mg/dL 10/06/2023 11:20 PM T [facility] BUN 41(H) 8 - 23 mg/dL 10/06/2023 11:20 PM T [facility] CREATININE 1.25(H) 0.50 - 0.90 mg/dL 10/06/2023 11:20 PM [facility] BUN/CREAT RATIO 33(H) 10 - 20 11:20 PM T [facility] eGFR 43(L) >90 mL/min/1.7 3m2 10/06/2023 11:20 PM T [facility] Comment:As of 2021, eG FR is calculated by the CKD-EPI creatinine equation without race adjustment. ??eGFR can be influenced by muscle mass, exercise, and diet. ??The reported eGFR is an estimation only and is only applicable if the renal function is stable. ALBUMIN 4.3 4.0 - 4.9 g/dL 10/06/2023 11:20 PM CDT [facility] PROTEIN,TOTAL 7.1 6.0 - 8.0 g/dL 10/06/2023 11:20 PM CDT [facility] BILIRUBIN,TOTAL 0.4 0.0 - 1.2 mg/dL 10/06/2023 11:20 PM CDT [facility] ALK PHOSPHATASE 78 35 - 104 IU/L 10/06/2023 11:20 PM CDT [facility] ALT (SGPT) 24 10 - 35 IU/L 10/06/2023 11:20 PM CDT [facility] [facility] AST (SGOT) 29 10 - 35 IU/L 10/06/2023 11:20 PM CDT [facility] Blood BLOOD SPECIMEN / Unknown Venipuncture / Unknown 10/06/2023 3:18 PM CDT 10/06/2023 3:18 PM CDT Lina Major MD [facility] [address] [place] [id number], * CT SPINE LUMBAR WO (10/06/2023 3:09 PM CDT) Anatomical Region Laterality Modality LUMBAR SPINE, Spine, Spine Compu sanford Tomography 10/06/2023 3:42 PM CDT Impressions 10/06/2023 3:42 PM CDT 1. No acute osseous abnormality identified in the lumbar spine. 2. Transitional lumbosacral anatomy. 3. Multilevel lumbar spondylosis, most pronounced at L5-S1. 4. Slight increase in size of an endophytic left lower pole renal mass concerning for renal cell carcinoma. Please note that all CT scans at this facility use dose modulation, iterative reconstruction, and/or weight-based dosing when appropriate to reduce radiation dose to as low as reasonably achievable. Dictated by Lisseth Sandy MD @ 10/06/2023 3:42:09 PM (Electronically Signed) Narrative 10/06/2023 3:42 PM CDT For Patients: ??As a result of the Cures Act, medical imaging exams and procedure reports are released immediately into your electronic medical record. ??You may view this report before your referring provider. ??If you have questions, please contact your health care provider. INDICATION: Lumbar back pain. TECHNIQUE: CT of the lumbar spine without contrast. COMPARISON: 06/25/2023. 09/16/2022. FINDINGS: Vertebral alignment: 5 lumbar vertebral bodies with partial lumbarization of the S1 level. There is grade 1 anterolisthesis L4 on L5. Alignment is otherwise anatomic. Vertebrae: Osseous demineralization. Vertebral body heights are maintained. Severe intervertebral disc space narrowing at L5-S1. Moderate intervertebral disc space narrowing at L4-5 and mild intervertebral disc space narrowing at the remaining lumbar levels. Multilevel endplate osteophytes are seen. Moderate to severe lower lumbar facet arthropathy, most pronounced at L5-S1. No acute fracture is identified. Extraspinal findings: Again seen is a soft tissue density mass within the lower pole of the left kidney, which measures roughly 3.5 cm in anteroposterior dimension, slightly increased in size compared to prior CT abdomen and pelvis when it measured 3.3 cm. There are extensive aortic calcifications without aneurysmal dilation. No retroperitoneal lymphadenopathy. Post cholecystectomy. Procedure Note Lisseth Sandy, - 10/06/2023 For Patients: As a result of the Cures Act, medical imagingexams and procedure reports are released immediately into your electronicmedical record. You may view this report before your referring provider.If you have questions, please contact your health care provider. INDICATION: Lumbar back pain. TECHNIQUE: CT of the lumbar spine without contrast. COMPARISON: 06/25/2023. 09/16/2022. FINDINGS: Vertebral alignment: 5 lumbar vertebral bodies with partial lumbarizationof the S1 level. There is grade 1 anterolisthesis L4 on L5. Alignment isotherwise anatomic. Vertebrae: Osseous demineralization. Vertebral body heights aremaintained. Severe intervertebral disc space narrowing at L5-S1. Moderateintervertebral disc space narrowing at L4-5 and mild intervertebral discspace narrowing at the remaining lumbar levels. Multilevel endplateosteophytes are seen. Moderate to severe lower lumbar facet arthropathy,most pronounced at L5-S1. No acute fracture is identified. Extraspinal findings: Again seen is a soft tissue density mass within thelower pole of the left kidney, which measures roughly 3.5 cm inanteroposterior dimension, slightly increased in size compared to prior CTabdomen and pelvis when it measured 3.3 cm. There are extensive aorticcalcifications without aneurysmal dilation. No retroperitoneallymphadenopathy. Post cholecystectomy. IMPRESSION: 1. No acute osseous abnormality identified in the lumbar spine. 2. Transitional lumbosacral anatomy. 3. Multilevel lumbar spondylosis, most pronounced at L5-S1. 4. Slight increase in size of an endophytic left lower pole renal massconcerning for renal cell carcinoma. Please note that all CT scans at this facility use dose modulation,iterative reconstruction, and/or weight-based dosing when appropriate toreduce radiation dose to as low as reasonably achievable. Dictated by Lisseth Sandy MD @ 10/06/2023 3:42:09 PM (Electronically Signed) Lina Major MD CT * (ABNORMAL) HEMOGLOBIN (08/11/2023 2:50 PM CDT) Pathologist [facility] HEMOGLOBIN 10.7(L) 12.0 - 16.0 g/dL 08/11/2023 2:58 PM CDT [facility] MCV 98 80 - 100 fL 08/11/2023 2:58 PM CDT [facility] Blood BLOOD SPECIMEN / Unknown Butterfly / Unknown 08/11/2023 2:50 PM CDT 08/11/2023 2:54 PM CDT Narrative [facility] - 08/11/2023 2:58 PM CDT This procedure was originally ordered at [facility], [place]. Kiersten Schultz NP HEMATOLOGY [facility] [address] [place] [address], * (ABNORMAL) BASIC METABOLIC PANEL (08/11/2023 2:50 PM CDT) SODIUM 140 136 - 145 mmol/L 08/11/2023 9:40 PM CDT [facility] POTASSIUM 4.8 3.5 - 5.1 mmol/L 08/11/2023 9:40 PM CDT [facility] CHLORIDE 103 98 - 107 mmol/L 08/11/2023 9:40 PM CDT [facility] CO2,TOTAL 26 22 - 29 mmol/L 08/11/2023 9:40 PM CDT [facility] ANION GAP 11 5 - 18 08/11/2023 9:40 PM CDT [facility] GLUCOSE 101(H) 70 - 99 mg/dL 08/11/2023 9:40 PM CDT [facility] CALCIUM 9.4 8.8 - 10.2 mg/dL 08/11/2023 9:40 PM T [facility] BUN 43(H) 8 - 23 mg/dL 08/11/2023 9:40 PM T [facility] CREATININE 1.20(H) 0.50 - 0.90 mg/dL 08/11/2023 9:40 PM T [facility] BUN/CREAT RATIO 36(H) 10 - 20 9:40 PM T [facility] eGFR 45(L) >90 mL/min/1.7 3m2 08/11/2023 9:40 PM T [facility] Comment:As of 2021, eG FR is calculated by the CKD-EPI creatinine equation without race adjustment. ??eGFR can be influenced by muscle mass, exercise, and diet. ??The reported eGFR is an estimation only and is only applicable if the renal function is stable. Blood BLOOD SPECIMEN / Unknown Butterfly / Unknown 08/11/2023 2:50 PM CDT 08/11/2023 2:54 PM CDT Kiersten Schultz NP [facility] [address] [place] [address], * (ABNORMAL) XR DXA BONE DENSITY 2 SITES AXIAL AND 1 SITE PERIPHERAL (05/11/2023 11:49 AM RESIDENT CARE DIRECTOR) Anatomical Region Laterality Modality LUMBAR SPINE Other Impressions 05/12/2023 4:49 PM RESIDENT CARE DIRECTOR Osteoporosis. RECOMMENDATIONS: The National Osteoporosis Foundation recommends pharmacologic treatment for patients with T-scores of -2.5 or less, patients with prior history of fragility fractures, or patients with 10-year probability of greater than 3% at hips or greater than 20% of suffering major osteoporotic fractures. Recommend continued optimization of calcium and vitamin D intake through dietary means and/or supplementation and regular exercise. Consider pharmacologic therapy for osteoporosis. Follow-up bone density reading in 2 years if therapy initiated to assess therapeutic efficacy. Andie Burrell PA-C [facility] 05/12/2023 Narrative 05/12/2023 4:49 PM RESIDENT CARE DIRECTOR For Patients: Results are automatically released to your [facility] account once available, in compliance with federal regulations. This means that you may see your results before your provider has had a chance to review them. Please allow 2-3 business days for your provider to comment on the results. XR DXA Bone Mineral Density (BMD) EXAM LOCATION: [address] [address] PATIENT NAME: Sofy Domínguez DATE OF : 1940 EXAM DATE: 05/11/2023 REQUESTING PROVIDER: Lina Major MD GENDER AT : female HEIGHT: 5' 3 (03/01/2023) WEIGHT: ??116 lb (03/01/2023) MENOPAUSAL STATUS: Postmenopausal RACE/ETHNICITY: White RISK FACTORS: Family History of Osteoporosis, Smoking (prior), Weight < 127 lbs., and White Race CURRENT MEDICATION FOR BONE LOSS: NONE INDICATION: Follow-up of existing osteopenia and Menopause COMPARISON DATE(S): 2017 DXA scans are compared to prior studies for a patient only when the two (or more) studies were performed on the same scanner. It is not possible to compare data generated on one scanner to data from another because there are not standards in DXA equipment. This applies even if the two scanners are made by the same manager sign. PROCEDURE: Dual-energy x-ray absorptiometry performed with routine technique. Reporting is completed in the form of a T-score. The T-score represents the standard deviation from peak bone mass based on young healthy adult. A Z-score is used for diagnosis in premenopausal women, and for men under the age of 50. FINDINGS: RESULT LUMBAR SPINE L1 - L4 BMD: 1.285 g/cm2 T-Score: + 0.7 Z-Score: + 3.0 Change from prior in 2018: ??Decrease 5.2%. RESULTS FEMUR Left femoral neck BMD: 0.832 g/cm2 T-Score: - 1.5 Z-Score: + 1.1 Change from prior in 2018: ??Decrease 6.3%. Right femoral neck BMD: 0.832 g/cm2 T-Score: - 1.5 Z-Score: + 1.1 Change from prior in 2018: ??Decrease 2.1%. Left hip BMD: 0.867 g/cm2 T-Score: - 1.1 Z-Score: + 1.4 Change from prior in 2018: ??Decrease 11.0%. Right hip BMD: 0.874 g/cm2 T-Score: - 1.1 Z-Score: + 1.5 Change from prior in 2018: ??Decrease 5.2%. RESULT FOREARM Left Forearm distal radius BMD: 0.438 g/cm2 T-Score: - 3.9 Z-Score: - 0.8 Change from prior: ??None WHO criteria: Normal: T-score at or above -1 SD Osteopenia: T-score between -1.1 and -2.4 SD Osteoporosis: T-score at or below -2.5 SD FRAX RISK CALCULATION (USED FOR OSTEOPENIA ONLY): 10-year probability of major osteoporotic fracture: 11.6%. 10-year probability of hip fracture: 3.3%. 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 Expl anation Treatment Guidelines 08/30/2020 * Full Code (Latest Code Status on File) Date Activated Date Inactivated Comments 07/22/2023 9:20 AM 07/23/2023 7:16 PM Question Answer Comments Code Status Discussion: Reviewed Preferences * Full Code Date Activated Date Inactivated Comments 04/06/2022 9:55 AM 04/07/2022 11:44 AM Question Answer Comments Code Status Discussion: Reviewed Preferences * Full Code Date Activated Date Inactivated Comments 02/17/2019 10:52 PM 02/18/2019 8:02 PM Question Answer Comments Code Status Discussion: Per Existing Order * Full Code Date Activated Date Inactivated Comments 07/06/2017 5:34 PM 07/09/2017 6:25 PM * Full Code Date Activated Date Inactivated Comments 04/24/2016 10:24 PM 04/25/2016 5:05 PM Care Teams Drosophere Operator Relationship Specialty Start Date End Date Lina Major MD [address] [place] [address] PCP - General Family Practice 06/25/22 Bhanu Avendaño MD Cardiology - EP Cardiovascular Disease 11/02/12 Thomas Huynh MD Consulting Physician Cardiovascular Disease 06/21/13 Rachel Rock MD Rheumatology Rheumatology 09/14/17 Syd Spence AuD [address] [place] [address] Audiology 12/10/22
--- OUTSIDE RECORDS SUMMARY | 2023-11-04 15:54 | XMS_ITS | Encounter Summary ---
Author Organization [employer] Address [address], [place] [address] Care Team Providers Care Press Service Reader Name Role Phone Anna Duggan MD Primary Care Provider [phone] Encounter Details Date Type Department Care Team (Latest Contact Info) Description 05/27/2004 [facility] Juan Carlos Srivastava MD [address] [place] [address] [phone] Social History Tobacco Use Types Packs/Day Years [...] on file documented as of this encounter Discharge Summaries * Juan Carlos Srivastava - 05/27/2004 12:00 AM HVAC SPECIALIST DISCHARGE DIAGNOSES: 1. Coronary artery disease. 2. Inducible ventricular tachycardia, status post automatic implantable cardioverter-defibrillator placement. PROCEDURES PERFORMED: 1. Coronary angiogram, which revealed mild disease in the left main artery with a 30% stenosis and a 10% stenosis in the mid left anterior descending artery. The saphenous vein graft of the left anterior descending artery was patent. The conclusion was that she had nonobstructive coronary artery disease and that no further intervention was indicated. 2. Electrophysiologic study, which revealed inducible ventricular tachycardia. Based on her history of ischemic cardiomyopathy with an ejection fraction of 35 to 40%, an automatic implantable cardioverter-defibrillator was placed. HOSPITAL COURSE: 1. Coronary artery disease. The patient is a 63-year-old female with a past medical history significant for coronary artery disease, who presented with chest pain. Her EKG, when compared to one dated July 29, 2003, revealed new Q waves inferiorly and V3 through V6. Her troponins were negative, but because of her history and abnormal EKG, she was taken for coronary angiography. The results are outlined above and essentially revealed nonobstructive coronary artery disease and medical management was recommended. She is currently on Coreg, Imdur, lisinopril, and aspirin. She remained pain-free and hemodynamically stable throughout the remainder of her hospitalization. 2. Inducible ventricular tachycardia. The patient also, in the review of systems, mentioned an episode of syncope. Given her known history of ischemic cardiomyopathy with an ejection fraction of 35 to 40%, she was taken for an electrophysiologic study, which revealed inducible ventricular tachycardia. An implantable defibrillator was placed and has been tolerated well. She had a chest x-ray the morning, the results of which are pending at the time of this dictation. Assuming there is no pneumothorax and the automatic implantable cardioverter-defibrillator is in proper position, she will be discharged later today. 3. Ischemic cardiomyopathy. As mentioned, patient has an ejection fraction of 35 to 40%. Her cardiomyopathy remained compensated throughout the hospitalization. She will continue on her usual medications. DISCHARGE MEDICATIONS: Coreg 12.5 mg p.o. b.i.d., Imdur 15 mg p.o. q.day, lisinopril 40 mg p.o. q.day, Celexa 20 mg p.o. q.day, Premarin 0.625 mg p.o. q.day, aspirin 81 mg p.o. q.day, Atarax 25 mg p.o. q.h.s., then metered-dose inhaler two puffs q.i.d., Prilosec 20 mg p.o. q.day, Demadex continue previous dose, nitroglycerin 0.4 mg sublingual p.r.n. chest pain, Percocet one to two p.o. q.4 to 6 hours p.r.n. FOLLOW-UP: 1. Cardiology clinic with Dr. Vergara in one to two weeks. 2. Internal medicine clinic with Dr. Sulma Yao on one to two weeks. 3. Heart failure clinic with Mary Silva RN. Greater than 30 minutes were spent in coordination of care. st1 Dictated: 05/31/2004 08:03:00 Juan Carlos Srivastava MD Transcribed: 06/04/2004 09:28:37 Doc #: [id number] cc: Sulma Yao MD, Primary Physician This document was electronically signed by Juan Carlos Srivastava MD on 06/11/2004 15:27:06. 1 Page 1 Patient Name: SOFY JOSEPH DISCHARGE SUMMARY CONFIDENTIAL MEDICAL RECORD [address] [id number] Page 1 Patient: SOFY JOSEPH Location: [facility] HPN: Admit Date: 05/27/2004 Date of : 1940 Discharge Date: 05/31/2004 DISCHARGE SUMMARY SPECIALIST documented in this encounter Plan of Treatment Not on file documented as of this encounter Visit Diagnoses Not on filedocumented in this encounter Care Teams Press Service Reader Relationship Specialty Start Date End Date Anna Duggan MD [address] [place] [address] PCP - General 01/04/07 documented as of this encounter
[2023-11-04 16:19] LABS: Basophils Absolute Auto 0.03 K/uL (0.00-0.30); Basophils Percent Auto 0.4 % (0.0-3.0); Eosinophils Absolute Auto 0.46 K/uL (0.00-0.50); Eosinophils Percent Auto 6.9 % (0.0-7.0); Hematocrit 35.5 % (33.0-51.0); Hemoglobin* 11.6 gm/dL (12.0-16.0); INR 3.03 (0.91-1.10); Immature Granulocytes Abs Auto 0.02 K/uL (0.00-0.30); Immature Granulocytes Pct Auto 0.3 %; Lymphocytes Absolute Auto 1.89 K/uL (0.90-2.90); Lymphocytes Percent Auto 28.2 % (20-44); Mean Corpuscular HGB Conc 33 gm/dL (32-36); Mean Corpuscular Hemoglobin 30 pg (26-34); Mean Corpuscular Volume 92 fL (80-100); Monocytes Percent Auto 9.4 % (0.0-11.0); Neutrophils Absolute Auto 3.68 K/uL (1.7-7.0); Neutrophils Percent Auto 54.8 % (42.0-72.0); Platelet Count* 137 K/uL (140-440); Prothrombin Time 33.7 Seconds; RDW Coefficient of Variation % 13.4 % (11.5-15.5); Red Blood Count 3.85 m/uL (4.00-5.20); White Blood Count* 6.71 K/uL (4.50-11.00)
[2023-11-04 16:21] LABS: Slide Review Reflex No
[2023-11-04 16:25] LABS: Lactate* 0.8 mmol/L (0.5-1.9)
[2023-11-04 16:28] LABS: Bilirubin Direct* 0.3 mg/dL (0.0-0.5); Calcium* 9.2 mg/dL (8.4-10.6)
[2023-11-04 16:36] LABS: C Reactive Protein* < 0.5 mg/dL (0.5-1.0)
[2023-11-04 16:57] LABS: Troponin, Point-of-Care* 0.01 ng/ml (0.01-0.04)
--- NOTE | 2023-11-04 17:15 | ED.GENADULT ---
HPI - General Adult General Chief complaint: Chest Pain Stated complaint: Chest pain, ill, given nitro Time Seen by Provider: 11/04/23 15:08 Source: patient Mode of arrival: ambulatory Limitations: no limitations History of Present Illness HPI narrative: 82-year-old female coming in today complaining of chest pain. Patient states that she was at home folding laundry all within she felt a sharp substernal chest pain. She grabbed her chest and fell on the couch. She started saying that her chest hurt. She felt clammy and lightheaded. She states that her daughter daughter is sublingual nitro and she felt significantly better. Patient comes in for evaluation. She is not feeling short of breath but she did feel very short of breath during the episode that lasted anywhere from 5-10 minutes. Past medical history significant for hypertension, congestive heart failure, coronary artery disease status post open heart surgery. She states that she just generalized does not feel well now, however no chest pain at the moment. Patient does have a pacemaker and defibrillator in place. Related Data Home Medications ?Medication ?Instructions ?Recorded ?Confirmed albuterol sulfate 2.5 mg/3 mL mg 03/19/22 (0.083 %) solution for nebulization ciprofloxacin HCl 500 mg tablet mg 03/19/22 fluoxetine 10 mg capsule mg 03/19/22 fluoxetine 20 mg capsule mg 03/19/22 isosorbide mononitrate 30 mg mg PO 03/19/22 tablet,extended release 24 hr levalbuterol HCl 0.31 mg/3 mL mg inhalation 03/19/22 solution for nebulization losartan 25 mg tablet mg 03/19/22 magnesium oxide mg 03/19/22 metoprolol succinate 25 mg mg PO 03/19/22 tablet,extended release 24 hr nitroglycerin 0.4 mg sublingual mg 03/19/22 tablet Allergies Allergy/AdvReac Type Severity Reaction Status Date / Time buspirone [From BuSpar] Allergy Unknown Verified 11/04/23 14:33 latex Allergy Hives Verified 11/04/23 14:33 Review of Systems Status of ROS: Reports: 10 or more systems reviewed and unremarkable except as noted in History and below PFSH PFS Social History Smoking Status: Former smoker Do you use any of these nicotine containing products: None How often do you have a drink containing alcohol: never How often do you have six or more drinks on one occasion: Never AUDIT-C Alcohol total score: 0 Non-prescribed substance use: denies use Exam Narrative: Exam Narrative: Well-nourished well-developed patient in no acute distress. Alert and oriented. Answers questions appropriately. Mood and affect are appropriate. Thoughts are goal oriented and rational. No tangential or magical thinking noted. Patient speaks in full sentences without needing to catch her breath. HEENT: Normocephalic atraumatic. Pupils are equally round reactive to light. Extraocular muscles are intact. Conjunctivae are moist without any icterus noted. Moist mucous membranes. Posterior pharynx is normal. Neck is soft without any lymphadenopathy or thyromegaly. No masses are appreciated. Cardiovascular: Heart is regular rate and rhythm S1 and S2 are present without any murmurs. Lungs: Clear to auscultation bilaterally no wheezes rhonchi or rales are appreciated. Patient takes deep breaths without any discomfort. We cannot reproduce her pain with palpation. Abdomen: Soft and nontender nondistended with normal bowel sounds. Extremities: Bilateral lower extremities are without edema. Normal DP and PT pulses. Skin: Warm, dry and intact. Const: Vital Signs, click to edit/add: Vital Signs - 24 hr 11/04/23 14:34 11/04/23 15:05 11/04/23 15:18 Temperature 97.7 F Pulse Rate 60 Pulse Rate [Pulse Oximeter] 75 Respiratory Rate 16 Blood Pressure Blood Pressure [Ri ght Upper Arm] 102/61 Pulse Oximetry 97 96 96 Oxygen Delivery Il thod Room Air 11/04/23 15:33 11/04/23 15:45 11/04/23 15:52 Temperature Pulse Rate 66 61 61 Pulse Rate [Pulse Oximeter] Respiratory Rate Blood Pressure 130/63 Blood Pressure [Ri ght Upper Arm] Pulse Oximetry 96 96 96 Oxygen Delivery Me thod 11/04/23 16:00 11/04/23 16:15 11/04/23 16:20 Temperature Pulse Rate 60 61 64 Pulse Rate [Pulse Oximeter] Respiratory Rate Blood Pressure 117/66 Blood Pressure [Ri ght Upper Arm] Pulse Oximetry 95 97 96 Oxygen Delivery Il thod 11/04/23 16:21 11/04/23 16:30 11/04/23 16:32 Temperature Pulse Rate 64 61 61 Pulse Rate [Pulse Oximeter] Respiratory Rate Blood Pressure 115/63 Blood Pressure [Ri ght Upper Arm] Pulse Oximetry 96 96 95 Oxygen Delivery Il thod 11/04/23 16:45 11/04/23 16:56 11/04/23 17:00 Temperature Pulse Rate 68 62 62 Pulse Rate [Pulse Oximeter] Respiratory Rate Blood Pressure 118/63 Blood Pressure [Ri ght Upper Arm] Pulse Oximetry 97 96 98 Oxygen Delivery Il thod 11/04/23 17:02 11/04/23 17:15 11/04/23 17:16 Temperature Pulse Rate 64 61 61 Pulse Rate [Pulse Oximeter] Respiratory Rate Blood Pressure 124/54 L 123/65 Blood Pressure [Ri ght Upper Arm] Pulse Oximetry 96 96 96 Oxygen Delivery Me thod 11/04/23 17:30 11/04/23 17:32 11/04/23 17:45 Temperature Pulse Rate 60 60 61 Pulse Rate [Pulse Oximeter] Respiratory Rate Blood Pressure 115/71 Blood Pressure [Ri ght Upper Arm] Pulse Oximetry 95 95 95 Oxygen Delivery Il thod 11/04/23 17:47 11/04/23 18:00 11/04/23 18:02 Temperature Pulse Rate 61 62 61 Pulse Rate [Pulse Oximeter] Respiratory Rate Blood Pressure 124/59 L 125/66 Blood Pressure [Ri ght Upper Arm] Pulse Oximetry 95 97 97 [facility] 18:15 11/04/23 18:17 11/04/23 18:18 Temperature Pulse Rate 63 62 61 Pulse Rate [Pulse Oximeter] Respiratory Rate Blood Pressure 130/61 Blood Pressure [Ri ght Upper Arm] Pulse Oximetry 93 96 96 Oxygen Delivery Il thod 11/04/23 18:30 11/04/23 18:32 11/04/23 18:45 Temperature Pulse Rate 63 62 61 Pulse Rate [Pulse Oximeter] Respiratory Rate Blood Pressure 129/73 Blood Pressure [Ri ght Upper Arm] Pulse Oximetry 92 92 95 Oxygen Delivery Il thod 11/04/23 18:47 11/04/23 19:02 Temperature Pulse Rate 61 79 Pulse Rate [Pulse Oximeter] Respiratory Rate Blood Pressure 127/66 Blood Pressure [Ri ght Upper Arm] Pulse Oximetry 95 96 [facility] Course: EKG, read by me, shows atrial paced rhythm with a pulse of 64. Patient is placed on a conveyor monitor and IV is started. CBC shows a hemoglobin of 11.6, normal white cell count her. INR is slightly supratherapeutic at 3.03. Normal chemistries. LFTs are normal. Normal magnesium. Point of care troponin was normal at 0.01, however her troponin I was elevated at 0.24. Repeat EKG was unchanged. Repeat point of care troponin remained normal and a repeat troponin I was also normal at 0.01. Likely the 1st elevated troponin I was a mistake so I did discuss this with lab and it was indeed the wrong blood specimen. Initial troponin was ran again and it was normal. Repeat troponin x2 unremarkable. Patient remained asymptomatic while she was here. Chest x-ray, read by me, was unremarkable. Vital Signs Vital signs: Initial Vital Signs Temperature 97.7 F 11/04/23 14:34 Temperature Source Temporal Artery Scan 11/04/23 14:34 Pulse Rate 75 11/04/23 14:34 Respiratory Rate 16 11/04/23 14:34 Blood Pressure 102/61 11/04/23 14:34 Blood Pressure Mean 74 11/04/23 14:34 Blood Pressure Position Sitting 11/04/23 14:34 Pulse Oximetry 97 11/04/23 14:34 Oxygen Delivery Method Room Air 11/04/23 14:34 Vital Signs Temperature 97.7 F 11/04/23 14:34 Pulse Rate 75 11/04/23 14:34 Respiratory Rate 16 11/04/23 14:34 Blood Pressure 102/61 11/04/23 14:34 Pulse Oximetry 97 11/04/23 14:34 Oxygen Delivery Method Room Air 11/04/23 14:34 Temperature 97.7 F 11/04/23 14:34 Pulse Rate 79 11/04/23 19:02 Respiratory Rate 16 11/04/23 14:34 Blood Pressure 127/66 11/04/23 18:47 Pulse Oximetry 96 11/04/23 19:02 Oxygen Delivery Method Room Air 11/04/23 14:34 Medical Decision Making MDM Narrative Medical decision making narrative: 82-year-old female with an episode of chest pain that resolved within 5-10 minutes. We have been monitoring the patient for over 5 hours here in the ED and she has been asymptomatic with normal workup. Unclear of what caused her chest discomfort but we discussed things like muscle spasm, esophageal spasm her. Recommend she follow up with primary care as needed or return to the ER if this happens again. Lab Data Lab results reviewed: Yes I reviewed the patient's lab results Labs: Lab Results 11/04/23 11/04/23 11/04/23 Range/Units 15:05 15:07 16:40 WBC 6.71 (4.50-11.00) K/uL RBC 3.85 L (4.00-5.20) m/uL Hgb 11.6 L (12.0-16.0) gm/dL Hct 35.5 (33.0-51.0) % MCV 92 (80-100) fL MCH 30 (26-34) pg MCHC 33 (32-36) gm/dL RDW Coeff of Karma 13.4 (11.5-15.5) % Plt Count 137 L (140-440) K/uL Neut % (Auto) 54.8 (42.0-72.0) % Lymph % (Auto) 28.2 (20-44) % Geary % (Auto) 9.4 (0.0-11.0) % Eos % (Auto) 6.9 (0.0-7.0) % Baso % (Auto) 0.4 (0.0-3.0) % Neut # (Auto) 3.68 (1.7-7.0) K/uL Lymph # (Auto) 1.89 (0.90-2.90) K/uL Geary # (Auto) 0.60 (0.00-0.90) K/UL Eos # (Auto) 0.46 (0.00-0.50) K/uL Baso # (Auto) 0.03 (0.00-0.30) K/uL Abs Immat Gran (auto) 0.02 (0.00-0.30) K/uL Imm/Tot Granulo (auto) 0.3 % INR 3.03 H (0.91-1.10) Sodium 140 (135-149) mmol/L Potassium 4.5 (3.6-5.1) mmol/L Chloride 106 (96-114) mmol/L Carbon Dioxide 22 (20-32) mmol/L Anion Gap 12 (7-15) mEq/L BUN 50 H (7-30) mg/dL Creatinine 1.1 (0.5-1.5) mg/dL Estimated Creat Clear 31.49 Estimated GFR 50 ml/min Glucose 83 (60-115) mg/dL Lactate 0.8 (0.5-1.9) mmol/L Calcium 9.2 (8.4-10.6) mg/dL Magnesium 1.9 (1.5-2.6) mg/dL Total Bilirubin 0.6 (0.1-1.5) mg/dL Direct Bilirubin 0.3 (0.0-0.5) mg/dL AST 44 H (12-35) U/L ALT 33 (4-35) U/L Alkaline Phosphatase 85 (40-150) U/L Troponin I < 0.01 L < 0.01 L (0.01-0.04) ng/mL C-Reactive Protein < 0.5 L (0.5-1.0) mg/dL NT-Pro-B Natriuret Pep 1610 pg/mL Total Protein 7.0 (6.0-8.3) g/dL Albumin 4.1 (3.3-5.0) g/dL POC Troponin I 0.01 0.01 (0.01-0.04) ng/ml 11/04/23 Range/Units 18:00 WBC (4.50-11.00) K/uL RBC (4.00-5.20) m/uL Hgb (12.0-16.0) gm/dL Hct (33.0-51.0) % MCV (80-100) fL MCH (26-34) pg MCHC (32-36) gm/dL RDW Coeff of Karma (11.5-15.5) % Plt Count (140-440) K/uL Neut % (Auto) (42.0-72.0) % Lymph % (Auto) (20-44) % Geary % (Auto) (0.0-11.0) % Eos % (Auto) (0.0-7.0) % Baso % (Auto) (0.0-3.0) % Neut # (Auto) (1.7-7.0) K/uL Lymph # (Auto) (0.90-2.90) K/uL Geary # (Auto) (0.00-0.90) K/UL Eos # (Auto) (0.00-0.50) K/uL Baso # (Auto) (0.00-0.30) K/uL Abs Immat Gran (auto) (0.00-0.30) K/uL Imm/Tot Granulo (auto) % INR (0.91-1.10) Sodium (135-149) mmol/L Potassium (3.6-5.1) mmol/L Chloride (96-114) mmol/L Carbon Dioxide (20-32) mmol/L Anion Gap (7-15) mEq/L BUN (7-30) mg/dL Creatinine (0.5-1.5) mg/dL Estimated Creat Clear Estimated GFR ml/min Glucose (60-115) mg/dL Lactate (0.5-1.9) mmol/L Calcium (8.4-10.6) mg/dL Magnesium (1.5-2.6) mg/dL Total Bilirubin (0.1-1.5) mg/dL Direct Bilirubin (0.0-0.5) mg/dL AST (12-35) U/L ALT (4-35) U/L Alkaline Phosphatase (40-150) U/L Troponin I 0.01 (0.01-0.04) ng/mL C-Reactive Protein (0.5-1.0) mg/dL NT-Pro-B Natriuret Pep pg/mL Total Protein (6.0-8.3) g/dL Albumin (3.3-5.0) g/dL POC Troponin I (0.01-0.04) ng/ml Imaging Data Chest x-ray: Attestation: I have reviewed the pertinent imaging results. Radiologist's impression: PA and lateral views of the chest. Comparison: 03/19/2022 Findings: Left chest AICD with right atrial and right ventricular leads. Postsurgical changes from median sternotomy. Moderate hiatal hernia. No focal consolidation, pleural effusions, or visualized pneumothorax. [id number] multilevel degenerative changes of the visualized spine. Upper abdominal surgical clips. Impression: No acute cardiopulmonary disease. ECG Data Attestation: I personally reviewed and interpreted this ECG as follows: Discharge Plan Discharge Clinical Impression: Chest pain Patient Disposition: Home, Self-Care Condition: Stable Additional Instructions: Your workup today in the ER did not show any evidence of heart attack or other life-threatening pathology causing your chest pain. Is unclear as to why this occurred however, some things that can cause similar chest pain include reflux, muscle spasms or esophageal spasms. Of note, you did have an elevated BUN which is something that can sometimes be seen with dehydration. Your hemoglobin is also slightly low at 11.6 which is nothing to be concerned about, however I would recommend you get your hemoglobin and your BUN rechecked with your primary care provider in the next couple of weeks to make sure it is not changing. Return to the ER if you experience another episode like this. Prescriptions: No Action albuterol sulfate 2.5 mg /3 mL (0.083 %) solution for nebulization isosorbide mononitrate 30 mg tablet extended release 24 hr PO Patient Comments: TAKE 1 TABLET BY MOUTH EVERY MORNING ciprofloxacin HCl 500 mg tablet losartan 25 mg tablet Patient Comments: TAKE 1 TABLET BY MOUTH EVERY DAY fluoxetine 10 mg capsule Patient Comments: TAKE 1 CAPSULE (10 MG) BY MOUTH EVERY MORNING. WITH THE 20MG DAILY nitroglycerin 0.4 mg tablet, sublingual Patient Comments: PLACE 1 TABLET (0.4 MG) UNDER THE TONGUE EVERY 5 MINUTES IF NEEDED FOR CHEST PAIN. metoprolol succinate 25 mg tablet extended release 24 hr PO Patient Comments: TAKE 1 TABLET BY MOUTH EVERY DAY fluoxetine 20 mg capsule Patient Comments: TAKE 1 CAPSULE (20 MG) BY MOUTH EVERY MORNING. WITH THE 10MG DOSE magnesium oxide 250 mg magnesium tablet Patient Comments: TAKE 1 TABLET BY MOUTH ONCE DAILY. levalbuterol HCl 0.31 mg/3 mL solution for nebulization INHALATION Patient Comments: INHALE 3 ML VIA A NEBULIZER EVERY 4 HOURS IF NEEDED FOR SHORTNESS OF BREATH Follow Up/Referrals: Lina Major MD [Primary Care Provider] - Stand Alone Forms: [employer] Info Instructions
[2023-11-04 17:19] LABS: Troponin I* < 0.01 ng/mL (0.01-0.04)
[2023-11-04 19:06] LABS: Troponin I* 0.01 ng/mL (0.01-0.04)
[2023-11-04 19:20] LABS: Sodium* 140 mmol/L (135-149)
[2023-11-04 19:21] LABS: Anion Gap 12 mEq/L (7-15); Carbon Dioxide* 22 mmol/L (20-32); Chloride* 106 mmol/L (96-114); Potassium* 4.5 mmol/L (3.6-5.1)
[2023-11-04 19:22] LABS: Blood Urea Nitrogen* 50 mg/dL (7-30); Creatinine* 1.1 mg/dL (0.5-1.5); Est. Creatinine Clearance* 31.49; Estimated Glomerular Filt Rate 50 ml/min
[2023-11-04 19:23] LABS: Albumin* 4.1 g/dL (3.3-5.0); Aspartate Amino Transferase* 44 U/L (12-35); Bilirubin Total* 0.6 mg/dL (0.1-1.5); Glucose* 83 mg/dL (60-115)
[2023-11-04 19:24] LABS: Alanine Aminotransferase* 33 U/L (4-35)
[2023-11-04 19:25] LABS: Alkaline Phosphatase* 85 U/L (40-150); Magnesium* 1.9 mg/dL (1.5-2.6); NT Pro B Type NatriureticPept* 1610 pg/mL; Troponin I* < 0.01 ng/mL (0.01-0.04)
== END 2023-11-04 20:11 | disposition home or self-care (01) ==
PROVIDERS: Emergency Provider Family Medicine; PCP Family Medicine
DX: R07.9 Chest pain, unspecified (principal)
CPT/HCPCS: 36415; 71046; 80048; 80076; 83605; 83735; 83880; 84484; 85025; 85610; 86140; 93005; 94761; 99284; 99285

== ENCOUNTER 2024-04-22 09:04 | Outpatient (CLI) | payer MEDICARE, SELFPAY | END 2024-04-22 09:05 | disposition home or self-care (01) | LOC: AMB 04-23 12:45 | PROVIDERS: PCP Family Medicine; Visit Provider Family Medicine | DX: R06.09 Other forms of dyspnea (principal) | CPT/HCPCS: A0425; A0427 ==